=== PATIENT | female | born 1965 | race Caucasian/White ===

== ENCOUNTER 2020-11-25 19:15 | Emergency (ER) | payer MEDICARE, SELFPAY ==
[2020-11-25] VITALS (28 sets, daily range): BP systolic 104–178; BP diastolic 59–94; PULSE 83–101; RESP 10–23; TEMP 36.7; O2SAT 94–100
--- NOTE | ~2020-11-25 | XR_ITS ---
EXAMINATION: XR chest 1V portable DATE: 11/25/2020 20:02 INDICATION: Shortness of breath, hypoxia, cough and COVID positive TECHNIQUE: frontal view of the chest was obtained. COMPARISON: Chest radiograph dated 08/31/2016 FINDINGS: The lungs remain clear with no focal airspace opacities, pulmonary edema, pleural effusion or pneumot horax. The cardiomediastinal silhouette is normal. Visualized bones and soft tissues are unremarkable . IMPRESSION: 1. No acute cardiopulmonary disease. Reviewed, dictated and finalized at location A.
--- NOTE | ~2020-11-25 | CT_ITS ---
EXAMINATION: CTA chest PE protocol DATE: 11/25/2020 21:58 INDICATION: Shortness of breath and cough TECHNIQUE: Computed tomography angiography (CTA) of the chest was performed with 100 mL Omnipaque-350 intravenous contrast timed to evaluate the pulmonary arteries. Coronal maximum intensity projection 3D-reconstructions were created by the technologist. The dose-length product (DLP) was 1030.74 mGy-cm . Automated exposure control and iterative reconstruction technique were employed. COMPARISON: None. FINDINGS: The pulmonary arteries are moderately well-opacified. No pulmonary embolism is identified. There is mild dependent atelectasis. No pleural effusion or pneumothorax is identified. No pathologic ally enlarged thoracic lymph nodes are identified. The heart size is normal. The gallbladder is surgi stoney absent. There is moderate thoracic spondylosis. IMPRESSION: 1. No pulmonary embolism or acute cardiopulmonary abnormality. Reviewed, dictated and finalized at location B.
--- NOTE | 2020-11-25 19:41 | ECG_ITS ---
Measurements Intervals [place] Rate: 89 P: 37 AK: 167 QRS: 4 QRSD: 93 T: 52 QT: 367 QTc: 447 Interpretive Statements SINUS RHYTHM INCOMPLETE RIGHT BUNDLE BRANCH BLOCK BASELINE ARTIFACT- I, II, III, AVR, AVL, AVF, V1-V6 BORDERLINE ECG Electronically Signed On 11-25-2020 20:40:06 CDT by Ion Durbin D.O.
--- NOTE | 2020-11-25 20:18 | ED.GENADULT ---
HPI - General Adult General Chief complaint: Shortness of Breath/Dyspnea Stated complaint: sob, + covid Time Seen by Provider: 11/25/20 19:22 Source: patient History of Present Illness HPI narrative: Patient is a 55 y/o female complaining of moderate SOB for 1 week. She uses Neb which helps some. She also has some cough and chest tightness. She has no fever. She tested positive for COVID 3 days ago. Related Data Home Medications Medication Instructions Recorded Confirmed albuterol sulfate INHALATION 11/25/20 aspirin 81 mg PO DAILY 11/25/20 azithromycin 11/25/20 buspirone 7.5 mg TID 11/25/20 carvedilol 6.25 mg BID 11/25/20 clopidogrel mg DAILY 11/25/20 cyclobenzaprine mg PRN 11/25/20 fluticasone propion-salmeterol INHALATION 11/25/20 fluticasone propion-salmeterol INHALATION 11/25/20 lisinopril 20 mg DAILY 11/25/20 metformin 1,000 mg BID 11/25/20 montelukast 10 mg DAILY 11/25/20 pioglitazone 30 mg DAILY 11/25/20 simvastatin 20 mg DAILY 11/25/20 vitamin B complex [Super B Complex] cap DAILY 11/25/20 Allergies Allergy/AdvReac Type Severity Reaction Status Date / Time No Known Allergies Allergy Verified 11/25/20 19:29 Review of Systems Constitutional: Constitutional: Denies chills, Denies fever(s), Denies headache(s) and Denies weakness Eyes: Eyes: Denies blurry vision ENT: Denies headache(s) and Denies neck pain Cardiovascular: Cardiovascular: Reports chest pain and Reports dyspnea Respiratory: Respiratory: Reports cough and Reports dyspnea Gastrointestinal: Gastrointestinal: Denies abdominal pain, Denies diarrhea, Denies nausea and Denies vomiting Genitourinary: Genitourinary: Denies hematuria and Denies dysuria Musculoskeletal: Musculoskeletal: Denies back pain and Denies neck pain Neurologic: Denies headache(s) and Denies weakness [facility] Past Medical History Medical History (Updated 11/25/20 @ 23:59 by Filomena Cuadra MD) COPD (chronic obstructive pulmonary disease) Family History Family History Mother Patient's mother is in good health Father Carcinoma of colon Family history of diabetes mellitus in first degree relative Family history of heart disease in male family member before age 55 Patient's father is Sibling Family history of diabetes mellitus in first degree relative Family history of heart disease in male family member before age 55 Social History Social History Smoking status: Current every day smoker Alcohol intake: current Exam Const: General: no acute distress and well developed Orientation/consciousness: oriented to person, oriented to place, oriented to time and patient oriented x3 HENMT: Head: normocephalic Ears: external ears normal General nose exam: Normal external nose present Eyes: General: appearance normal, both eyes and all related structures Conjunctivae: conjunctivae normal Neck: Neck: normal visual inspection and full ROM Chest: Chest palpation & inspection: normal inspection of the chest and no tenderness Resp: Effort & Inspection: normal respiratory effort Auscultation: clear to auscultation bilaterally Cardio: Rate: regular rate Rhythm: regular rhythm GI: GI Palp: No abdominal tenderness and Yes Soft to palpation Skin: General skin exam: normal color and turgor normal Neuro: General: oriented to person, oriented to place, oriented to time and patient oriented x3 Cognition (Neuro): normal cognition Extrem: General: normal to inspection, full ROM and no pedal edema Psych: Appearance: grossly normal Mental Status: mental status grossly normal Affect: normal affect Course Vital Signs Vital signs: Vital Signs Temperature 36.7 C 11/25/20 19:25 Pulse Rate 101 H 11/25/20 19:25 Respiratory Rate 20 11/25/20 19:25 Blood Pressure 178/84 H 11/25/20 19:25 Pulse Oximetry 97 11/25/20 19:2
[2020-11-25] MEDS: methylPREDNISolone SOD SUCC 125 MG VIAL IV PUSH (20:44)
[2020-11-25 20:58] LABS: Basophils Percent Auto 0.4 % (0.2-1.2); Eosinophils Absolute Auto 0.2 K/mm3 (0-0.3); Hematocrit 36.5 % (37.0-47.0); Hemoglobin 12.5 g/dL (12.0-15.0); Immature Granulocyte Absolute 0.04 K/mm3 (0.00-0.031); Immature Granulocyte Percent A 0.5 % (0-0.5); Lymphocytes Absolute Auto 1.43 K/mm3 (0.9-3.2); Lymphocytes Percent Auto 18.9 % (18.3-44.2); Mean Corpuscular HGB Conc 34.2 g/dl (32-36); Mean Corpuscular Hemoglobin 31.6 pg (26-34); Mean Corpuscular Volume 92.4 fl (80-100); Mean Platelet Volume 9.4 fl (7.4-10.4); Monocytes Absolute Auto 0.7 K/mm3 (0.1-0.6); Monocytes Percent Auto 9.3 % (2.6-8.5); Neutrophils Absolute Auto 5.2 K/mm3 (1.3-6.7); Neutrophils Percent Auto 68.9 % (45.5-73.1); Platelet Count Result 328 k/mm3 (150-375); Red Blood Count 3.95 M/mm3 (4.2-5.4); Red Cell Distribution Width 13.1 % (11.5-14.5); White Blood Count 7.6 K/mm3 (4.5-10.0)
[2020-11-25 21:09] LABS: Alanine Aminotransferase 24 U/L (4-35); Albumin Level 3.7 g/dL (3.5-5.1); Alkaline Phosphatase 76 U/L (38-126); Anion Gap 6 mmol/L (8-16); Aspartate Amino Transferase 21 U/L (14-36); Bilirubin,Total 0.6 mg/dL (0.2-1.3); Blood Urea Nitrogen 16 mg/dL (7-17); Calcium 9.3 mg/dL (8.4-10.2); Carbon Dioxide 26 mmol/L (22-30); Chloride 104 mmol/L (98-107); Estimated Glomerular Filt Rate > 60; Glucose 113 mg/dL (65-110); Potassium 3.8 mmol/L (3.4-5.0); Sodium 136 mmol/L (137-145)
[2020-11-25 21:10] LABS: D Dimer 1.06 ug/mL (<0.48)
[2020-11-25 21:21] LABS: NT Pro B Type Natriuretic Pept 210 pg/mL (5-100); Troponin I < 0.012 ng/mL (0.000-0.034)
[2020-11-25 23:14] LABS: Troponin I < 0.012 ng/mL (0.000-0.034)
[2020-11-26 00:01] VITALS: BP 179/82; PULSE 98; RESP 13; O2SAT 96
[2020-11-26 00:02] VITALS: PULSE 95; RESP 13; O2SAT 97
[2020-11-26 00:15] VITALS: PULSE 93; RESP 13; O2SAT 97; O2SAT 99
[2020-11-26 00:16] VITALS: BP 175/98; PULSE 92; RESP 14; O2SAT 96
[2020-11-26 00:32] VITALS: PULSE 99; RESP 16
[2020-11-26 00:52] VITALS: BP 175/98; PULSE 92; RESP 14; O2SAT 96
== END 2020-11-26 00:55 | disposition home or self-care (01) ==
PROVIDERS: Emergency Provider Emergency Medicine; PCP Family Medicine
DX: U07.1 COVID-19 (principal); J44.1 Chronic obstructive pulmonary disease with (acute) exacerbation; E11.9 Type 2 diabetes mellitus without complications; Z95.5 Presence of coronary angioplasty implant and graft; Z87.442 Personal history of urinary calculi; Z79.84 Long term (current) use of oral hypoglycemic drugs; Z79.82 Long term (current) use of aspirin; F17.200 Nicotine dependence, unspecified, uncomplicated; I45.10 Unspecified right bundle-branch block
CPT/HCPCS: 36415; 71045; 71275; 80053; 83880; 84484; 85025; 85380; 93005; 96374; 99284; J2930; Q9967

== ENCOUNTER 2021-06-14 15:10 | Emergency (ER) | payer MEDICARE, SELFPAY ==
--- NOTE | ~2021-06-14 | XR_ITS ---
EXAMINATION: XR lumbar spine 2-3V EXAM DATE: 06/14/2021 18:16 INDICATION: Right sided low back pain radiating down right leg, fall. TECHNIQUE: Lumber spine frontal, lateral, bilateral oblique projections. Coned down frontal and lat eral L5-S1 lumbar projections for interpretation. There is no prior study for comparison. FINDINGS: No acute fracture line identified. Vertebral body heights appear maintained. Sacrum, sacroi liac joints, sacral arcuate lines are intact. There is moderate disc disease at L1-2, mild at the o ther lumbar levels. There is grade 1 anterolisthesis L3 on L4 and L4 on L5 without spondylolysis susp ected. Mild to moderate lumbar facet arthropathy. Mild thoracolumbar scoliosis. Sacrum, sacroiliac courtney ints, sacral arcuate lines are intact. Abdominal wall mesh anchors. IMPRESSION: 1. Overall mild to moderate lumbar spondylosis. 2. No acute findings. Reviewed, dictated and finalized at location . T [facility]ENDOR
[2021-06-14 15:15] VITALS: BP 147/82; PULSE 84; RESP 20; TEMP 36.7; O2SAT 100
--- NOTE | 2021-06-14 17:22 | PC.NURSE ---
reports having right hip/lower back pain on thursday. reports fall a week before. denies LOC
[2021-06-14] MEDS: HYDROcodone/acetaminophen (*CRX) 5-325 MG TABLET 1 TAB PO (18:18)
[2021-06-14] MEDS: ACETAMINOPHEN 325 MG TABLET 650 MG PO (18:19)
--- NOTE | 2021-06-14 18:35 | ED.BACK ---
HPI - Back Pain/Injury General Chief Complaint: Back Pain/Injury Stated Complaint: back pain. fall Time Seen by Provider: 06/14/21 17:27 Source: patient Mode of arrival: ambulatory Limitations: no limitations History of Present Illness HPI Narrative: This is a 55 year old female that presents to the ER for low back pain present over the last couple of days. Reports no known injury to the back. Reports she had a ground level fall a couple of weeks ago and injured her knee. Reports the pain is in the right side of her lower back and radiates into the right leg. Denies saddle anesthesia or bowel/bladder incontinence. Related Data Home Medications Medication Instructions Recorded Confirmed albuterol sulfate INHALATION 11/25/20 aspirin 81 mg PO DAILY 11/25/20 buspirone 7.5 mg TID 11/25/20 carvedilol 6.25 mg BID 11/25/20 clopidogrel mg DAILY 11/25/20 cyclobenzaprine mg PRN 11/25/20 fluticasone propion-salmeterol INHALATION 11/25/20 fluticasone propion-salmeterol INHALATION 11/25/20 lisinopril 20 mg DAILY 11/25/20 metformin 1,000 mg BID 11/25/20 montelukast 10 mg DAILY 11/25/20 pioglitazone 30 mg DAILY 11/25/20 simvastatin 20 mg DAILY 11/25/20 vitamin B complex [Super B Complex] cap DAILY 11/25/20 Allergies Allergy/AdvReac Type Severity Reaction Status Date / Time No Known Allergies Allergy Verified 06/14/21 17:24 Review of Systems Review of Systems: CONSTITUTIONAL: Denies fever SKIN: Denies rash MUSCULOSKELETAL: Reports back pain, joint pain, and myalgia. NEUROLOGIC: Denies numbness, or weakness. All systems reviewed & are unremarkable except as noted in HPI and below PMFSH Past Medical History Medical History (Updated 06/14/21 @ 20:01 by Nikki Harvey PA-C) COPD (chronic obstructive pulmonary disease) Family History Family History Mother Patient's mother is in good health Father Carcinoma of colon Family history of diabetes mellitus in first degree relative Family history of heart disease in male family member before age 55 Patient's father is Sibling Family history of diabetes mellitus in first degree relative Family history of heart disease in male family member before age 55 Social History Social History Smoking status: Current every day smoker Alcohol intake: current Exam Narrative: GENERAL: Well-appearing, well-nourished, and in no acute distress. HEAD: Normocephalic, atraumatic. EYES: EOMI. CHEST: Clear to auscultation. No respiratory distress. No wheezes rales or rhonchi HEART: Regular rate and rhythm. No murmur heard. Normal peripheral pulses. BACK: No midline spinal tenderness EXTREMITIES: Normal range of motion. No pitting edema. Strength equal in bilateral lower extremities (5/5). Normal DP pulses SKIN: Warm, dry, no rash. NEURO: No focal deficits. Alert and oriented x3. PSYCH: Normal mood and affect Course Vital Signs Vital signs: Vital Signs Temperature 98.1 F 06/14/21 15:15 Pulse Rate 84 06/14/21 15:15 Respiratory Rate 20 06/14/21 15:15 Blood Pressure 147/82 H 06/14/21 15:15 Pulse Oximetry 100 06/14/21 15:15 Temperature 98.1 F 06/14/21 15:15 Pulse Rate 84 06/14/21 15:15 Respiratory Rate 20 06/14/21 15:15 Blood Pressure 147/82 H 06/14/21 15:15 Pulse Oximetry 100 06/14/21 15:15 MDM - Back Pain/Injury MDM Narrative Medical decision making narrative: Patient presents to the ER for low back pain. No recent injuries or trauma to the back. Patient is neurologically intact. Lumbar spine x-ray shows mild to moderate lumbar spondylosis. No acute findings. Patient reports improvement with [place]. Instructed to rest, ice and take [id number] pain medication as needed. She does have prescribed pain medication as needed as well. Will be started on steroid taper. She is to follow-up with her primary c
== END 2021-06-14 20:27 | disposition home or self-care (01) ==
PROVIDERS: Emergency Provider Emergency Medicine; PCP Family Medicine
DX: M54.41 Lumbago with sciatica, right side (principal); Z79.82 Long term (current) use of aspirin; Z79.84 Long term (current) use of oral hypoglycemic drugs; J44.9 Chronic obstructive pulmonary disease, unspecified; F17.200 Nicotine dependence, unspecified, uncomplicated; M47.816 Spondylosis without myelopathy or radiculopathy, lumbar region
CPT/HCPCS: 72100; 99283; A9270

== ENCOUNTER 2022-06-17 17:08 | Emergency (ER) | payer MEDICARE, SELFPAY ==
[2022-06-17 17:29] VITALS: BP 94/35; PULSE 74; RESP 20; TEMP 36; O2SAT 100
--- NOTE | 2022-06-17 17:31 | ED.URI ---
HPI - URI/Sore Throat General Chief Complaint: Upper Respiratory Infection Stated Complaint: Sore Throat,Lt Ear Irritation Time Seen by Provider: 06/17/22 17:26 Source: patient, RN notes reviewed and old records reviewed Mode of arrival: ambulatory Limitations: no limitations History of Present Illness HPI Narrative: 56-year-old female presents to the [facility] with complaints of a sore throat and left ear pain since yesterday. No treatment prior to arrival. Denies fevers. Onset (ago): day(s) (1) Related Data Home Medications Medication Instructions Recorded Confirmed albuterol sulfate 90 mcg/actuation 90 mcg inhalation DIRECTED 11/25/20 06/17/22 aerosol inhaler aspirin 81 mg tablet 81 mg PO DAILY 11/25/20 06/17/22 buspirone 7.5 mg tablet 7.5 mg TID 11/25/20 06/17/22 carvedilol 6.25 mg tablet 6.25 mg BID 11/25/20 06/17/22 clopidogrel 75 mg tablet 75 mg PO DAILY 11/25/20 06/17/22 cyclobenzaprine 10 mg tablet 10 mg DIRECTED PRN Muscle Spasm 11/25/20 06/17/22 fluticasone 250 mcg-salmeterol 50 1 inh inhalation DIRECTED 11/25/20 06/17/22 mcg/dose blistr powdr for inhalation fluticasone 250 mcg-salmeterol 50 1 inh inhalation DIRECTED 11/25/20 06/17/22 mcg/dose blistr powdr for inhalation lisinopril 20 mg tablet 20 mg DAILY 11/25/20 06/17/22 metformin 500 mg tablet 1,000 mg BID 11/25/20 06/17/22 montelukast 10 mg tablet 10 mg DAILY 11/25/20 06/17/22 pioglitazone 30 mg tablet 30 mg DAILY 11/25/20 06/17/22 simvastatin 20 mg tablet 20 mg DAILY 11/25/20 06/17/22 vitamin B complex 1 cap PO DAILY 11/25/20 06/17/22 methotrexate sodium 2.5 mg tablet 2.5 mg PO DIRECTED 06/17/22 06/17/22 Allergies Allergy/AdvReac Type Severity Reaction Status Date / Time No Known Allergies Allergy Verified 06/14/21 17:24 Review of Systems Review of Systems: All systems reviewed & are unremarkable except as noted in HPI and below Constitutional: Constitutional: Reports no additional constitutional complaints Eyes: Eyes: Reports no additional eye complaints ENT: Reports as per HPI and Reports sore throat Cardiovascular: Cardiovascular: Reports no additional cardiovascular complaints, Denies chest pain and Denies dyspnea Respiratory: Respiratory: Reports no additional respiratory complaints, Denies chest congestion, Denies cough and Denies dyspnea Gastrointestinal: Gastrointestinal: Reports no additional gastrointestinal complaints, Denies abdominal pain, Denies nausea and Denies vomiting Musculoskeletal: Musculoskeletal: Reports no additional musculoskeletal complaints Integumentary/Breasts: Skin/Breast: Reports system reviewed and no additional complaints, except as docu Neurologic: Reports system reviewed and no additional complaints, except as documented Psychiatric: Psychiatric: Reports no additional psychiatric complaints Allergic/Immunologic: Allergic/Immunologic: Reports no additional allergic/immunologic complaints [facility] Past Medical History Medical History COPD (chronic obstructive pulmonary disease) Family History Family History Mother Patient's mother is in good health Father Carcinoma of colon Family history of diabetes mellitus in first degree relative Family history of heart disease in male family member before age 55 Patient's father is Sibling Family history of diabetes mellitus in first degree relative Family history of heart disease in male family member before age 55 Social History Social History Smoking status: Current every day smoker Alcohol intake: current Comments At the time of my signature, I reviewed and agree with the nursing past medical, surgical, social, and family history. There is no relevant family history pertinent to the patient complaint. Exam Const: General: cooperat
== END 2022-06-17 18:07 | disposition home or self-care (01) ==
PROVIDERS: Emergency Provider Nurse Practitioner; PCP Family Medicine
DX: J02.0 Streptococcal pharyngitis (principal); B37.9 Candidiasis, unspecified; Z20.822 Contact with and (suspected) exposure to COVID-19; F17.290 Nicotine dependence, other tobacco product, uncomplicated; J44.9 Chronic obstructive pulmonary disease, unspecified; Z79.82 Long term (current) use of aspirin
CPT/HCPCS: 87426; 87804; 87880; 99213; C9803; G0463

== ENCOUNTER 2022-09-23 17:24 | Emergency (ER) | payer MEDICARE, SELFPAY ==
--- NOTE | ~2022-09-23 | XR_ITS ---
EXAMINATION: XR elbow LT min 3V DATE: 09/23/2022 18:42 INDICATION: Persistent left elbow pain post fall 2 days prior TECHNIQUE: Anteroposterior, two oblique and lateral views of the left elbow were obtained. COMPARISON: None. FINDINGS: Alignment is normal. No fracture or joint effusion. Joint spaces are normal. Small heterotopic ossicl e along the medial epicondyle which could be either enthesopathic or sequela of old trauma. Couple ph leboliths in the subcutaneous tissues along the posterior proximal forearm. IMPRESSION: 1. No left elbow joint effusion or osseous abnormality. 2. Small heterotopic ossicle along the medial epicondyle which could enthesopathic or more likely seq uela of old trauma. Reviewed, dictated and finalized at location A. IMPRESSION: 1. No left elbow joint effusion or osseous abnormality. 2. Small heterotopic ossicle along the medial epicondyle which could enthesopat hic or more likely sequela of old trauma.
--- NOTE | ~2022-09-23 | XR_ITS ---
EXAMINATION: XR knee RT 3V DATE: 09/23/2022 18:42 INDICATION: Right knee pain post fall TECHNIQUE: Anteroposterior, 2 oblique and crosstable lateral views of the right knee were obtained COMPARISON: None. FINDINGS: No fracture. Mild genu varum with moderate to severe joint space narrowing in the medial compartment of the right knee. Moderate size marginal osteophytes all 3 compartments of the knee. Moderate-sized right knee joint effusion without evident layering lipohemarthrosis. There is some subcutaneous edema throughout the visualized distal right thigh and proximal right calf. IMPRESSION: 1. Moderate-sized right knee joint effusion. No acute osseous abnormality. 2. Moderate to severe medial compartment predominant tricompartmental osteoarthritis at the right kne e. Reviewed, dictated and finalized at location A. IMPRESSION: 1. Moderate-sized right knee joint effusion. No acute osseous abnormality. 2. Moderate to severe medial compartment predominant tricompartmental osteoarth ritis at the right knee.
[2022-09-23 17:53] VITALS: BP 136/63; PULSE 86; RESP 20; TEMP 36.1; O2SAT 100
[2022-09-23 17:59] VITALS: BP 136/63; PULSE 86; RESP 20; TEMP 36.1; O2SAT 100
--- NOTE | 2022-09-23 18:20 | ED.GENADULT ---
HPI - General Adult General Chief complaint: Extremity Injury, Lower Stated complaint: Lt Elbow,Rt Knee Injury Due To Fall Time Seen by Provider: 09/23/22 18:00 Source: patient Mode of arrival: ambulatory Limitations: no limitations History of Present Illness HPI narrative: 56-year-old female with a history of COPD, diabetes, MT/PTCI presented for complaint of left elbow and right knee pain after injury 2 days ago. She states she tripped and landed on the left elbow causing an abrasion and bruising. She states at that time she twisted the right knee. Reports the front and back of the right knee hurts. Endorses the pain increases throughout the day. She reports chronic arthritis using Rollator at baseline. She has taken tramadol for chronic pain. She has applied ice without significant change in symptoms. She rates the pain 8/10. Denies numbness, tingling, weakness of extremities. She smokes 1 ppd. Related Data Home Medications Medication Instructions Recorded Confirmed albuterol sulfate 90 mcg/actuation 90 mcg inhalation DIRECTED 11/25/20 09/23/22 aerosol inhaler aspirin 81 mg tablet 81 mg PO DAILY 11/25/20 09/23/22 buspirone 7.5 mg tablet 7.5 mg TID 11/25/20 09/23/22 carvedilol 6.25 mg tablet 6.25 mg BID 11/25/20 09/23/22 clopidogrel 75 mg tablet 75 mg PO DAILY 11/25/20 09/23/22 cyclobenzaprine 10 mg tablet 10 mg DIRECTED PRN Muscle Spasm 11/25/20 09/23/22 fluticasone 250 mcg-salmeterol 50 1 inh inhalation DIRECTED 11/25/20 09/23/22 mcg/dose blistr powdr for inhalation lisinopril 20 mg tablet 20 mg DAILY 11/25/20 09/23/22 metformin 500 mg tablet 1,000 mg BID 11/25/20 09/23/22 montelukast 10 mg tablet 10 mg DAILY 11/25/20 09/23/22 pioglitazone 30 mg tablet 30 mg DAILY 11/25/20 09/23/22 simvastatin 20 mg tablet 20 mg DAILY 11/25/20 09/23/22 vitamin B complex 1 cap PO DAILY 11/25/20 09/23/22 methotrexate sodium 2.5 mg tablet 2.5 mg PO DIRECTED 06/17/22 09/23/22 Allergies Allergy/AdvReac Type Severity Reaction Status Date / Time No Known Allergies Allergy Verified 09/23/22 17:56 Review of Systems Review of Systems: CONSTITUTIONAL: Denies body aches, fever, chills EYES: Denies visual changes ENT: Denies rhinorrhea, congestion CARDIOVASCULAR: Denies chest pain, palpitations, or edema. RESPIRATORY: Denies cough or dyspnea. GASTROINTESTINAL: Denies abdominal pain, nausea, vomiting, or diarrhea. SKIN: Reports wound to left elbow denies rash, itching MUSCULOSKELETAL: Reports joint pain NEUROLOGIC: Denies headache, numbness, tingling, or weakness. All systems reviewed & are unremarkable except as noted in HPI and below PMFSH Past Medical History Medical History (Updated 09/23/22 @ 19:52 by Yuly Miller APRN) CAD (coronary artery disease) COPD (chronic obstructive pulmonary disease) Diabetes Intestinal fistula Tear of meniscus of right knee Surgical History Surgical History (Updated 09/23/22 @ 18:44 by Yuly Miller APRN) History of hysterectomy Family History Family History Mother Patient's mother is in good health Father Carcinoma of colon Family history of diabetes mellitus in first degree relative Family history of heart disease in male family member before age 55 Patient's father is Sibling Family history of diabetes mellitus in first degree relative Family history of heart disease in male family member before age 55 Social History Social History Smoking status: Current every day smoker Alcohol intake: current Comments At time of signature, I have reviewed and agree with nursing past medical, surgical, social and family history unless otherwise noted. Please see nursing chart for further information. There is no relevant family history pertinent to the presenting complaint Exam Narrative: GENERAL: Appears in some pedro
== END 2022-09-23 19:55 | disposition home or self-care (01) ==
PROVIDERS: Emergency Provider Nurse Practitioner Family; PCP Family Medicine
DX: S50.312A Abrasion of left elbow, initial encounter (principal); W01.0XXA Fall on same level from slipping, tripping and stumbling without subsequent striking against object, initial encounter; M25.561 Pain in right knee; M19.90 Unspecified osteoarthritis, unspecified site; I25.10 Atherosclerotic heart disease of native coronary artery without angina pectoris; J44.9 Chronic obstructive pulmonary disease, unspecified; E11.9 Type 2 diabetes mellitus without complications; F17.200 Nicotine dependence, unspecified, uncomplicated; Z79.82 Long term (current) use of aspirin; Z79.84 Long term (current) use of oral hypoglycemic drugs
CPT/HCPCS: 73080; 73562; 99214; G0463

== ENCOUNTER 2022-12-01 08:10 | Emergency (ER) | payer MEDICARE, SELFPAY ==
[2022-12-01] VITALS (7 sets, daily range): BP systolic 100–172; BP diastolic 57–95; PULSE 77–88; RESP 16–22; TEMP 36.6; O2SAT 99–100
--- NOTE | ~2022-12-01 | CT_ITS ---
EXAMINATION: CT abdomen pelvis wo con DATE: 12/01/2022 09:36 INDICATION: Evaluate for kidney stone. TECHNIQUE: Computed tomography (CT) of the abdomen and pelvis was performed without intravenous contr ast. The dose-length product was 1572.18 mGy-cm. Automated exposure control and iterative reconstruct ion technique were employed. COMPARISON: CT dated 11/30/2018. FINDINGS: There is a stable 6 mm right lower lobe nodule, image 46. Heart size normal. There is ather osclerosis. No significant pleural or pericardial effusion. Status post cholecystectomy. Status post previous ventral abdominal wall hernia repair with mesh. The liver, spleen, pancreas, right kidney and adrenal glands are unremarkable. There is mild left per inephric stranding. Mild left hydronephrosis. The left renal pelvis is slightly higher density than n ormal. There are nonobstructing left renal stones, largest measuring 4 mm. Mild left periureteral michael ma. No obstructing ureteral stone is seen. There is atherosclerosis without aneurysm. Colonic diverti culosis without evidence for diverticulitis. Mild lumbar spondylosis. IMPRESSION: 1. Mild left hydronephrosis. No definite obstructing stone identified. There is left perinephric and periureteral edema. Considerations include sequela of recently passed stone. Less likely consideratio ns include pyelonephritis or ascending urinary tract infection. 2: Nonobstructing left nephrolithiasis. 3: Stable 6 mm right lower lobe nodule. Follow-up low dose CT chest in 12 months recommended. Reviewed, dictated and finalized at location A. IMPRESSION: 1. Mild left hydronephrosis. No definite obstructing stone identified. There is left perinephric and periureteral edema. Considerations include sequela of rec ently passed stone. Less likely considerations include pyelonephritis or ascend ing urinary tract infection. 2: Nonobstructing left nephrolithiasis. 3: Stable 6 mm right lower lobe nodule. Follow-up low dose CT chest in 12 enrique hs recommended.
[2022-12-01 08:41] LABS: Basophils Percent Auto 0.5 % (0.2-1.2); Eosinophils Absolute Auto 0.1 K/mm3 (0-0.3); Eosinophils Percent Auto 1.3 % (0-4.4); Hematocrit 39.7 % (37.0-47.0); Hemoglobin 13.3 g/dL (12.0-15.0); Immature Granulocyte Absolute 0.02 K/mm3 (0.00-0.031); Immature Granulocyte Percent A 0.3 % (0-0.5); Lymphocytes Absolute Auto 1.23 K/mm3 (0.9-3.2); Mean Corpuscular HGB Conc 33.5 g/dl (32-36); Mean Corpuscular Hemoglobin 33.5 pg (26-34); Mean Platelet Volume 8.8 fl (7.4-10.4); Monocytes Absolute Auto 0.6 K/mm3 (0.1-0.6); Monocytes Percent Auto 7.9 % (2.6-8.5); Neutrophils Absolute Auto 5.7 K/mm3 (1.3-6.7); Platelet Count Result 275 k/mm3 (150-375); Red Blood Count 3.97 M/mm3 (4.2-5.4); Red Cell Distribution Width 13.9 % (11.5-14.5); White Blood Count 7.7 K/mm3 (4.5-10.0)
[2022-12-01 08:52] LABS: Alanine Aminotransferase 22 U/L (6-35); Albumin Level 3.8 g/dL (3.5-5.1); Alkaline Phosphatase 62 U/L (38-126); Anion Gap 13 mmol/L (8-16); Aspartate Amino Transferase 24 U/L (14-36); Bilirubin,Total 0.5 mg/dL (0.2-1.3); Blood Urea Nitrogen 14 mg/dL (7-17); Calcium 8.7 mg/dL (8.4-10.2); Carbon Dioxide 23 mmol/L (22-30); Chloride 100 mmol/L (98-107); Estimated CRCL calculation 151 ml/min; Estimated Glomerular Filt Rate > 60; Glucose 168 mg/dL (65-110); Potassium 3.7 mmol/L (3.4-5.0); Sodium 136 mmol/L (137-145)
--- NOTE | 2022-12-01 08:59 | ED.BACK ---
HPI - Back Pain/Injury General Chief Complaint: Back Pain/Injury Stated Complaint: left side pain/hematuria Time Seen by Provider: 12/01/22 08:54 History of Present Illness HPI Narrative: 57 y/o female presents to the ER today for pain in the LLQ and hematuria. She says she woke up this morning and had bloody urine. She has been having pain in the left lower abdomen since then. She says it hurts in her left flank only when she is up and moving around. She has a history of kidney stones but says that this hurts worse than a kidney stone she has has had in the past. She feels like she needs to have a BM but can't. She has nausea but no vomiting. No fever or chills. Related Data Home Medications Medication Instructions Recorded Confirmed albuterol sulfate 90 mcg/actuation 90 mcg inhalation DIRECTED 11/25/20 09/23/22 aerosol inhaler aspirin 81 mg tablet 81 mg PO DAILY 11/25/20 09/23/22 buspirone 7.5 mg tablet 7.5 mg TID 11/25/20 09/23/22 carvedilol 6.25 mg tablet 6.25 mg BID 11/25/20 09/23/22 clopidogrel 75 mg tablet 75 mg PO DAILY 11/25/20 09/23/22 cyclobenzaprine 10 mg tablet 10 mg DIRECTED PRN Muscle Spasm 11/25/20 09/23/22 fluticasone 250 mcg-salmeterol 50 1 inh inhalation DIRECTED 11/25/20 09/23/22 mcg/dose blistr powdr for inhalation lisinopril 20 mg tablet 20 mg DAILY 11/25/20 09/23/22 metformin 500 mg tablet 1,000 mg BID 11/25/20 09/23/22 montelukast 10 mg tablet 10 mg DAILY 11/25/20 09/23/22 pioglitazone 30 mg tablet 30 mg DAILY 11/25/20 09/23/22 simvastatin 20 mg tablet 20 mg DAILY 11/25/20 09/23/22 vitamin B complex 1 cap PO DAILY 11/25/20 09/23/22 methotrexate sodium 2.5 mg tablet 2.5 mg PO DIRECTED 06/17/22 09/23/22 Allergies Allergy/AdvReac Type Severity Reaction Status Date / Time No Known Allergies Allergy Verified 12/01/22 08:26 Review of Systems Review of Systems: CONSTITUTIONAL: Denies fever, chills, or sweats. EYES: Denies visual changes, redness, or discharge. ENT: Denies rhinorrhea, congestion, sore throat, or otalgia. CARDIOVASCULAR: Denies chest pain, palpitations, or edema. RESPIRATORY: Denies cough or dyspnea. GASTROINTESTINAL: as per HPI GENITOURINARY: hematuria, left flank pain SKIN: Denies rash or itching. MUSCULOSKELETAL: Denies joint pain, or myalgia. NEUROLOGIC: Denies headache, numbness, dizziness, or weakness. PSYCHIATRIC: Denies anxiety or depression. [facility] Past Medical History Medical History CAD (coronary artery disease) COPD (chronic obstructive pulmonary disease) Diabetes Intestinal fistula Tear of meniscus of right knee Surgical History Surgical History History of hysterectomy Family History Family History Mother Patient's mother is in good health Father Carcinoma of colon Family history of diabetes mellitus in first degree relative Family history of heart disease in male family member before age 55 Patient's father is Sibling Family history of diabetes mellitus in first degree relative Family history of heart disease in male family member before age 55 Social History Social History Smoking status: Current every day smoker Alcohol intake: current Exam Narrative: GENERAL: Obese, acute pain distress but not ill or toxic appearing HEAD: Normocephalic, atraumatic. EYES: conjunctiva clear NECK: Supple. No adenopathy or masses. No carotid bruits or JVD CHEST: Clear to auscultation. No respiratory distress. No wheezes rales or rhonchi HEART: Regular rate and rhythm. No murmur heard. Normal peripheral pulses. ABDOMEN: morbidly obese abdomen, very large pannus, tender LLQ, no CVAT EXTREMITIES: Normal range of motion. No edema. SKIN: Warm, dry, no rash. NEURO: No focal deficits. Alert
[2022-12-01] MEDS: SODIUM CHLORIDE 0.9% IV 1,000 ML 999 ML IV CONT (09:04)
[2022-12-01] MEDS: ONDANSETRON INJ 4 MG/2 ML VIAL IV PUSH (09:05)
[2022-12-01] MEDS: MORPHINE SULFATE (*CRX) 4 MG/ML INJ IV PUSH (09:05)
[2022-12-01] MEDS: MORPHINE SULFATE (*CRX) 2 MG/ML INJ IV PUSH (10:06)
[2022-12-01] MEDS: cefTRIAXone 2 GM/NS 100 ML 2 GM/100 ML BAG IVPB (10:24)
[2022-12-01 10:50] LABS: Appearance Urine Cloudy (Clear); Bacteria Urine None Seen /hpf; Bilirubin Urine Negative (Negative); Blood Urine 3+ (Negative); Color Urine Dark Yellow (Yellow); Glucose Urine UA Negative (Negative); Ketones Urine Trace mg/dL (Negative); Leukocyte Esterase Ur 3+ LEU/UL (Negative); Need Manual Microscopic Reviewed; Nitrate Urine Negative (Negative); Protein Urine 2+ mg/dL (Negative); RBC Urine >100 /hpf (0-2); Specific Grav Ur 1.023 (1.001-1.035); Squamous Epithelial Cell Urine Few /hpf (Few); WBC Urine >100 /hpf
[2022-12-01 10:58] LABS: Add Urine Microscopic? YES
== END 2022-12-01 11:42 | disposition home or self-care (01) ==
PROVIDERS: Emergency Medicine; Emergency Provider Nurse Practitioner Family; PCP Family Medicine
DX: N10 Acute pyelonephritis (principal); B96.89 Other specified bacterial agents as the cause of diseases classified elsewhere; I25.10 Atherosclerotic heart disease of native coronary artery without angina pectoris; J44.9 Chronic obstructive pulmonary disease, unspecified; E11.9 Type 2 diabetes mellitus without complications; Z90.710 Acquired absence of both cervix and uterus; Z79.84 Long term (current) use of oral hypoglycemic drugs; Z79.82 Long term (current) use of aspirin; R91.1 Solitary pulmonary nodule; N20.0 Calculus of kidney
CPT/HCPCS: 36415; 74176; 80053; 81001; 85025; 87077; 87086; 87186; 96361; 96365; 96375; 96376; 99284; J0696; J2270; J2405; J7030

== ENCOUNTER 2023-07-29 13:48 | Emergency (ER) | payer MEDICARE, SELFPAY ==
--- NOTE | ~2023-07-29 | XR_ITS ---
EXAMINATION: XR knee RT 3V DATE: 07/29/2023 16:28 INDICATION: Twisting right knee pain TECHNIQUE: AP, lateral and oblique views of the right knee were obtained COMPARISON: 09/23/2022 FINDINGS: Bone alignment is normal. No fracture. Tricompartmental osteoarthritis at the right knee mi ld joint space narrowing at the lateral and patellofemoral compartments and moderate to severe at the medial compartment. Small right knee joint effusion without layering lipohemarthrosis. Surgical clip s along the medial right thigh likely related to prior saphenous vein graft harvest. Again seen is di ffuse fatty atrophy throughout the musculature of the visualized right leg. IMPRESSION: 1. Small right knee joint effusion. No acute osseous abnormality. 2. Moderate to severe medial compartment predominant tricompartmental osteoarthritis at the right kne e. Reviewed, dictated and finalized at location A. IMPRESSION: 1. Small right knee joint effusion. No acute osseous abnormality. 2. Moderate to severe medial compartment predominant tricompartmental osteoarth ritis at the right knee.
[2023-07-29 13:50] VITALS: BP 144/61; PULSE 61; RESP 16; TEMP 36.6; O2SAT 100
--- NOTE | 2023-07-29 17:22 | ED.GENADULT ---
HPI - General Adult General Chief complaint: Extremity Injury, Lower Stated complaint: fall last noc, R knee pain Time Seen by Provider: 07/29/23 15:22 History of Present Illness HPI narrative: 57-year-old female presenting to the emergency department for evaluation of right knee pain. Patient reports she had a fall yesterday landing on her knee and did not have immediate pain after the fall. Patient states when she woke up this morning she did have some knee pain in that the knee pain has progressed over the course of the day. Patient denies striking head denies loss consciousness. Patient does have a wound dressing intact the affected leg the medial thigh. Related Data Home Medications Medication Instructions Recorded Confirmed albuterol sulfate 90 mcg/actuation 90 mcg inhalation DIRECTED 11/25/20 09/23/22 aerosol inhaler aspirin 81 mg tablet 81 mg PO DAILY 11/25/20 09/23/22 buspirone 7.5 mg tablet 7.5 mg TID 11/25/20 09/23/22 carvedilol 6.25 mg tablet 6.25 mg BID 11/25/20 09/23/22 clopidogrel 75 mg tablet 75 mg PO DAILY 11/25/20 09/23/22 cyclobenzaprine 10 mg tablet 10 mg DIRECTED PRN Muscle Spasm 11/25/20 09/23/22 fluticasone 250 mcg-salmeterol 50 1 inh inhalation DIRECTED 11/25/20 09/23/22 mcg/dose blistr powdr for inhalation lisinopril 20 mg tablet 20 mg DAILY 11/25/20 09/23/22 metformin 500 mg tablet 1,000 mg BID 11/25/20 09/23/22 montelukast 10 mg tablet 10 mg DAILY 11/25/20 09/23/22 pioglitazone 30 mg tablet 30 mg DAILY 11/25/20 09/23/22 simvastatin 20 mg tablet 20 mg DAILY 11/25/20 09/23/22 vitamin B complex 1 cap PO DAILY 11/25/20 09/23/22 methotrexate sodium 2.5 mg tablet 2.5 mg PO DIRECTED 06/17/22 09/23/22 Allergies Allergy/AdvReac Type Severity Reaction Status Date / Time No Known Allergies Allergy Verified 07/29/23 13:52 Review of Systems Review of Systems: All systems reviewed & are unremarkable except as noted in HPI and below PMFSH Past Medical History Medical History CAD (coronary artery disease) COPD (chronic obstructive pulmonary disease) Diabetes Intestinal fistula Tear of meniscus of right knee Surgical History Surgical History History of hysterectomy Family History Family History Mother Patient's mother is in good health Father Carcinoma of colon Family history of diabetes mellitus in first degree relative Family history of heart disease in male family member before age 55 Patient's father is Sibling Family history of diabetes mellitus in first degree relative Family history of heart disease in male family member before age 55 Social History Social History Smoking status: Current every day smoker Alcohol intake: current Exam Narrative: APPEARANCE: Well appearing, no pain, no distress, well-nourished. HEAD: normocephalic, atraumatic. EYES: PERRLA/EOMI, conjunctivae clear. NOSE: Normal no drainage EARS:TMS clear with good light reflex. THROAT: Pharynx clear, no exudate. NECK: Supple. No adenopathy, no masses. RESPIRATORY: Airway patent, respirations nonlabored. Clear to auscultation bilaterally, no rales, rhonchi, wheezing. CARDIOVASCULAR: Regular rate and rhythm without murmurs rubs or gallops. ABDOMINAL: Soft, nontender, nondistended, normal bowel sounds MUSCULOSKELETAL: Tenderness to right knee NEURO: Alert. Cranial nerves II through XII intact. Grossly intact SKIN: Warm, dry. Normal Color Course Course Emergency Course: Patient was updated results and encouraged to have close follow-up with Orthopedics. Vital Signs Vital signs: Vital Signs Temperature 97.9 F 07/29/23 13:50 Pulse Rate 61 07/29/23 13:50 Respiratory Rate 16 07/29/23 13:50 Blood Pressure 144/61 H 03
[2023-07-29 17:35] VITALS: BP 135/69; PULSE 81; RESP 20; O2SAT 97
--- NOTE | 2023-07-29 17:53 | PC.NURSE ---
Pt does not fit knee immobilizer. ERP, Dr alvarado aware.
== END 2023-07-29 17:55 | disposition home or self-care (01) ==
PROVIDERS: Emergency Provider Emergency Medicine; PCP Family Medicine
DX: M23.91 Unspecified internal derangement of right knee (principal); W19.XXXA Unspecified fall, initial encounter; I25.10 Atherosclerotic heart disease of native coronary artery without angina pectoris; E11.9 Type 2 diabetes mellitus without complications
CPT/HCPCS: 73562; 99283

== ENCOUNTER 2024-03-28 20:39 | Emergency (ER) | payer MEDICARE, SELFPAY ==
[2024-03-28 20:41] VITALS: BP 150/76; PULSE 91; RESP 16; TEMP 36.3; O2SAT 100
--- NOTE | 2024-03-28 23:48 | PC.NURSE ---
pt to appeals rn, i think i am just going to go home.
== END 2024-03-28 23:48 | disposition left against medical advice (07) ==
LOC: ANHED 23:51
PROVIDERS: PCP Family Medicine
DX: R10.9 Unspecified abdominal pain (principal)
CPT/HCPCS: 99199

== ENCOUNTER 2024-10-04 17:24 | Observation (INO) | payer MEDICARE, SELFPAY ==
--- NOTE | ~2024-10-04 | XR_ITS ---
XR femur RT min 2V Ordering provider: Trever Choudhury MD History: . wound TO MEDIAL UPPER THIGH . Comparison: July 29, 2023 FINDINGS: BONES: No acute fracture or dislocation. JOINT SPACES: Osteopenia in the bones around the right knee joint. Severe narrowing of the medial com partment. Moderate narrowing of the lateral compartment. SOFT TISSUES: Normal. IMPRESSION: No acute osseous abnormality of the right femur. Osteopenia around the right knee joint. Severe osteoarthritic changes of the right knee. Reviewed, dictated and finalized at location [facility]. IMPRESSION: No acute osseous abnormality of the right femur. Osteopenia around the right kn ee joint. Severe osteoarthritic changes of the right knee.
--- NOTE | ~2024-10-04 | CT_ITS ---
CT scan of the right lower extremity CLINICAL HISTORY: cellulitis, diabetic TECHNIQUE: Following intravenous administration of 200 cc of Omnipaque 350 contrast material, axial i maging of the right lower extremity, from the right pelvis through the right foot was performed. Sagi ttal and coronal reformatted images were constructed. Dose reduction technique was used on this scan by utilizing automated exposure control and iterative reconstruction technique. The dose-length produ ct (DLP) was 2106.11 mGy-cm. Findings: Visualized osseous structures are intact. No fracture or destructive change to suggest oste oarthritis. There is moderate tricompartmental degenerative change at the right knee. Right hip joint is intact. Joint spaces at the foot and ankle appear intact. No joint effusion evident. There is musculature in the right lower extremity venous without significant abnormality. There is di ffuse subcutaneous soft tissue edema, especially at the medial aspect of the lower extremity about th e knee joint. There is extensive skin thickening, especially through the calf and about the knee. No definite focal fluid collection seen to suggest abscess. There is apparent postoperative change and d istortion at the anterior aspect of the proximal right thigh. IMPRESSION: Extensive subcutaneous soft tissue edema of the right lower extremity, especially about the knee, com patible with cellulitis. No abscess evident. No evidence for osteomyelitis. Probable postoperative scarring and distortion at the anterior aspect of the proximal right thigh. Co rrelate with surgical history and physical exam. Moderate degenerative change at the knee. Reviewed, dictated and finalized at [facility]. IMPRESSION: Extensive subcutaneous soft tissue edema of the right lower extremity, especial ly about the knee, compatible with cellulitis. No abscess evident. No evidence for osteomyelitis. Probable postoperative scarring and distortion at the anterior aspect of the pr oximal right thigh. Correlate with surgical history and physical exam. Moderate degenerative change at the knee.
[2024-10-04 17:26] VITALS: BP 118/49; PULSE 101; RESP 16; TEMP 36.8; O2SAT 100
--- OUTSIDE RECORDS SUMMARY | 2024-10-04 17:26 | XMS_ITS | Clinical Summary ---
Author Organization [facility] [address] Address [address] [place] [address] Care Team Providers Care Delphi Developer Name Role Phone Apolinar Gonzáles MD Primary Care Provider [phone] Eric Lynn MD Unavailable [phone] Allergies No known active allergies Medications aspirin (ASPIRIN LOW DOSE) 81 mg tabletIndications:p revention of thrombosis take 1 Tablet (81MG) by oral route every day 0 05/18/19 13 Active metFORMIN (GLUCOPHAGE) 500 mg tabletIndications:t ype 2 diabetes mellitus [The details of the medication are not available because there are pending changes by a home health clinician.] 0 0 11/30/19 13 Active Additional Information Patient not taking.Reason: dose change 08/17/2023, Informant: Self, Reported on 11/18/2023 montelukast (SINGULAIR) 10 mg tabletIndications:M aintenance Therapy for Asthma take 1 tablet by oral route every day in the evening 0 0 08/14/19 16 Active lisinopril (PRINIVIL,ZESTRIL) 20 mg tabletIndications:h ypertension take 1 tablet by oral route every day 0 0 08/14/19 16 Active fluticasone-salmete rol (ADVAIR DISKUS) 250-50 mcg/dose diskus inhalerIndications: Bronchospasm Prevention with COPD,Maintenance Therapy for Asthma Inhale 1 puff 2 (two) times a day Rinse mouth with water after use to reduce aftertaste and incidence of candidiasis. Do not swallow. Active albuterol HFA (PROVENTIL HFA,VENTOLIN HFA) 90 mcg/actuation inhalerIndications: Acute Asthma Attack,Chronic Obstructive Pulmonary Disease Inhale 2 puffs every 6 (six) hours as needed for wheezing Active fluticasone (FLONASE) 50 mcg/actuation nasal sprayIndications:Al lergic Rhinitis Administer 1 spray into each nostril 2 (two) times a day 07/18/19 18 Active cholecalciferol (VITAMIN D-3) 400 unit capsuleIndications: Supplement Take 1 tablet/capsule (400 Units total) by mouth early childhood specialist before breakfast Active nitroglycerin (NITROSTAT) 0.4 mg SL tabletIndications:a cute episode of anginal pain Place 1 tablet (0.4 mg total) under the tongue every 5 (five) minutes as needed for chest pain May repeat dose q 5 min, up to 3 doses total 30 tablet 3 10/24/19 23 Active cyclobenzaprine (FLEXERIL) 10 mg tabletIndications:M uscle Spasm Take 1 tablet by mouth 3 (three) times a day for muscle spasms takes BID third dose is if needed 04/07/[address] (CYMBALTA) 30 mg capsuleIndications: Diabetic Peripheral Neuropathy,Fibromya lgia Take 2 capsules (60 mg total) by mouth early childhood specialist before breakfast Active ipratropium-albuter oL (DUO-NEB) 0.5-2.5 mg/3 mL nebulizer solutionIndications :Chronic Obstructive Pulmonary Disease with Bronchospasms Take 3 mL by nebulization every 6 (six) hours as needed for wheezing or shortness of breath 05/05/20 23 Active meclizine (ANTIVERT) 25 mg tabletIndications:V ertigo Take 1 tablet by mouth 3 (three) times a day as needed for dizziness takes BID third dose is as needed 03/31/20 23 Active methotrexate 2.5 mg tabletIndications:R heumatoid Arthritis Take 9 tablets (22.5 mg total) by mouth every 7 days Thursday Active pioglitazone (ACTOS) 30 mg tabletIndications:t ype 2 diabetes mellitus Take 1 tablet (30 mg total) by mouth early childhood specialist before breakfast 05/21/19 24 Active acetaminophen 500 mg capsuleIndications: Pain [The details of the medication are not available because there are pending changes by a home health clinician.] 09/04/19 24 Active Additional Information Patient not taking.Reason: Other (not needed routinely), Informant: Self, Reported on 10/14/2023 blood-glucose meter kitIndications:DM Use as directed. 1 kit 10/07/19 Active blood glucose diagnostic (glucose blood) stripIndications:DM Use as directed up to four times a day. 100 each 1 10/07/19 24 Active lancets miscIndications:DM Use as directed up to 4 times a day. 100 each 1 10/07/19 24 Active alcohol swabs (Alcohol Wipes) pads, medicatedIndication s:DM Use as directed. 100 each 10/07/19 24 Active oxyCODONE (ROXICODONE) 5 mg immediate release tabletIndications:P ain [The details of the medication are not available because there are pending changes by a home health clinician.] 30 tablet 10/08/19 24 Active Additional Information Patient not taking.Reason: No longer needs for pain, Informant: Self, Reported on 11/18/2023 doxycycline (MONODOX) 100 mg capsuleIndications: Skin/Soft Tissue Infection [The details of the medication are not available because there are pending changes by a home health clinician.] 24 capsule 10/08/19 24 Active Additional Information Patient not taking.Reason: was only for 12 days, Reported on 11/18/2023 fluconazole (DIFLUCAN) 200 mg tabletIndications:S kin/Soft Tissue Infection [The details of the medication are not available because there are pending changes by a home health clinician.] 22 tablet 10/09/19 24 Active Additional Information Patient not taking.Reason: was only for 10 days, Reported on 11/18/2023 metFORMIN (GLUCOPHAGE) 500 mg tabletIndications:t ype 2 diabetes mellitus Take 2 tablets (1,000 mg total) by mouth 2 (two) times a day with meals 08/17/19 24 Active traMADoL (ULTRAM) 50 mg tabletIndications:P ain Take 1 tablet (50 mg total) by mouth every 6 (six) hours as needed for pain 20 tablet 10/21/19 24 Active carvediloL (COREG) 6.25 mg tabletIndications:h ypertension TAKE 1 TABLET BY MOUTH TWICE DAILY WITH MEALS 180 tablet 3 11/13/19 24 Active clopidogreL (PLAVIX) 75 mg tabletIndications:P eripheral Arterial Thromboembolism Prevention Take 1 tablet by mouth once daily 90 tablet 3 11/23/19 24 Active simvastatin (ZOCOR) 20 mg tabletIndications:h yperlipidemia Take 1 tablet by mouth nightly 90 tablet 3 11/23/19 24 Active folic acid (FOLVITE) 1 mg tabletIndications:s upplement Take 1 tablet by mouth daily 11/09/19 24 Active Active Problems Problem Noted Date Diagnosed Date Dehiscence of incision, sequela 09/25/2023 Assessment & Plan (10/06/2023 12:15 PM CDT): Sanjay David is a 57 y.o. female with obesity, hypertension, hyperlipidemia, coronary artery disease and diabetes who underwent resection of a large right inner thigh lipoma on 07/02/23. Developed redness around the drain sites and was given 7 days of Bactrim. Some warmth and redness tenderness persisted across the top of her thigh and the incision began to drain She was treated with Keflex with some improvement but continued to have drainage and redness and a palpable fluid collection. Admitted 09/01/23 for I&D which found significant seroma w/o evidence of purulence, however culture grew MSSA/pseudomonas and she was treated for SSTI with cephalexin and ciprofloxacin 10 days. Per patient after discharge, she popped some of the stitches and draining resumed, and recently drainage increased along with redness and tenderness along the inferior wound margin. CT Right thigh 09/28 showed a 5.8 x 3.9 x 6.2cm rim-enhancing fluid collection Taken to OR 10/01 for I&D - intraoperatively noted serous/cloudy fluid in the abscess, area surrounded by woody rind OR cultures 10/01: Pseudomonas; Sonali Albicans, 1 culture w/ CONS likely contaminant (one colony on one piece of media) Recommendations: - Discontinue IV cefepime and start Ciprofloxacin 750mg PO BID, Doxycyline 100mg PO BID, and Fluconazole 400mg PO daily (ordered) - Check EKG for baseline Qtc - ID is formally signing off but will continue to monitor patient peripherally while in house. Recommending to continue treatment for SSTI abscess s/p surgical debridement for 14 days with PO ciprofloxacin, doxycycline, and fluconazole 10/06/23-10/20/23). Please see sign off note from 10/05 for complete recommendations. Cellulitis and abscess of lower extremity 2023 Assessment & Plan (09/04/2023 3:18 PM CDT): Sanjay David is a 57 y.o. female with obesity, hypertension, hyperlipidemia, coronary artery disease and diabetes who underwent resection of a large right thigh lipoma on July 02. When she was seen on July 23 her drains were taken out her stitches were removed. She reported some redness around the drain sites and was given 7 days of Bactrim. She developed some warmth and redness tenderness persisted across the top of her thigh and the incision began to drain as well. She was treated with Keflex with some improvement but continued to have drainage and redness and a palpable fluid collection. She was admitted on August 31 for I and D. In the OR where they cleaned out a significant seroma cavity without any evidence of purulence. Some debridement of the local skin around the area was also debrided. Tissue cultures were sent which are positive for MSSA and Pseudomonas. Susceptibilities returned today 09/02 Qtc: 432 Recommendations: - when ready for discharge would discharge on ciprofloxacin 500 mg p.o. b.i.d. and Keflex 500 mg p.o. t.i.d. for 10-14 days. Patient does not require ID follow-up. - discussed plan with patient and reviewed possible side effects and triggers for calling her physician. - plan discussed with ortho TALENT AGENT - we will sign off. call with questions Open wound of right thigh 08/27/2023 Requires daily management of epidural infusion 0 07/06/2023 Mass of right thigh 06/05/2023 Morbid (severe) obesity due to excess calories 0 10/23/2022 Body mass index (BMI) 60.0-69.9, adult Angina pectoris, unspecified 10/23/2022 Bilateral leg weakness 09/02/2022 Neck pain on right side 02/03/2018 Arthritis 07/30/2017 Bladder leak 07/30/2017 COPD (chronic obstructive pulmonary disease) Diabetes mellitus 07/30/2017 Dyslipidemia 07/30/2017 HTN (hypertension) 07/30/2017 Seasonal allergies 07/30/2017 Coronary artery disease invo lving [place] coronary artery of [place] heart without angina pectoris 02/26/2017 History of coronary artery stent placement 02/26 Morbid obesity with body mas s index (BMI) of 60.0 to 69.9 in adult 02/26/2017 Encounters Date Type Department Care Team Description 07/14/2024 11:00 AM BUSINESS REPRESENTATIVE Office Visit [facility] Orthopaedic Surgery [address] [place] [address] [place] [address] Eric Lynn MD Open wound of right thigh, initial encounter (Primary Dx) from Last 3 Months Surgical History Surgery Date Site/Laterality Comments CHOLECYSTECTOMY OTHER SURGICAL HISTORY Repeated removal of retained bile duct stones HYSTERECTOMY HERNIA REPAIR CORONARY ANGIOPLASTY 05/11/2009 - 05/10/2010 ANN-MARIE to LAD MASS EXCISION 06/11/2023 - 07/09/2023 Right SECTION x3 COLONOSCOPY Medical History Medical History Date Comments Hypertension Diabetes mellitus (HCC) Obesity Arthritis COPD (chronic obstructive pulmonary disease) (HC C) Hypercholesteremia Sleep apnea Family History Medical History Relation Name Comments Heart attack Father Heart attack Mother Anesthesia problems Neg Hx Malig Hyperthermia Neg Hx Pseudochol deficiency Neg Hx Relation Name Status Comments Father Mother Social History Tobacco Use Types Packs/Day Years Used Date Smoking Tobacco: Former Cigarettes 1 40 0 05/20/1983 - 05/20/2023 Smokeless Tobacco: Never Tobacco Cessation:Counseling Given: Not Answered Comments:Smoking History Packs/day: 1 Packs Alcohol Use Standard Drinks/Week Comments Yes 1 (1 standard drink = 0.6 oz pur e alcohol) occassionally OASIS D0700: Social Isolation Answer Da te Recorded Frequency of experiencing loneliness or isolatio n Never 01/20/2024 OASIS A1250: Transportation Answer Date Recorded Lack of Transportation (Medical) No 01/20/2024 Lack of Transportation (Non-Medical) No 01/20/2024 Patient Unable or Declines to Respond No 01/20/2024 OASIS B1300: Health Literacy Answer Martell e Recorded Frequency of needing help to read materials from doctor or pharmacy Never 01/20/2024 [facility] Utilities Answer Date Recorded In the past 12 months has th e electric, gas, oil, or water company threatened to shut off services in your home? No 10/09/2023 Social Connection and Isolat ion Panel [NHANES] Answer Date Recorded In a typical week, how many times do you talk on the phone with family, friends, or neighbors? More than three times a week 10/09/2023 How often do you get togethe r with friends or relatives? More than three times a week 10/09/2023 How often do you attend chur ch or confucianist services? Never 10/09/2023 Do you belong to any clubs o r organizations such as religion groups, unions, fraternal or athletic groups, or school groups? No 10/09/2023 How often do you attend meet ings of the clubs or organizations you belong to? Never 10/09/2023 Are you , , di vorced, , never , or living with a partner? 10/09/2023 AUDIT-C Answer Date Recorded Q1: How often do you have a drink containing alcohol? Never 10/02/2023 Q2: How many drinks containi ng alcohol do you have on a typical day when you are drinking? Patient does not drink Q3: How often do you have si x or more drinks on one occasion? Never 10/02/2023 Overall Financial Resource Strain (CARDIA) Answe r Date Recorded How hard is it for you to pa y for the very basics like food, housing, medical care, and heating? Not very hard 10/09/2023 Hunger Vital Sign Answer Date Recorded Within the past 12 months, y ou worried that your food would run out before you got the money to buy more. Never true 10/09/19 24 Within the past 12 months, t he food you bought just didn't last and you didn't have money to get more. Never true 10/09/2023 PRAPARE - Transportation Answer Date Re corded In the past 12 months, has l ack of transportation kept you from medical appointments or from getting medications? No 09/10 In the past 12 months, has l ack of transportation kept you from meetings, work, or from getting things needed for daily living? No 10/09/2023 Housing Stability Vital Sign Answer Martell e Recorded In the last 12 months, was t here a time when you were not able to pay the mortgage or rent on time? No 09/26/2023 In the last 12 months, how many places have you lived? 1 09/26/2023 In the last 12 months, was t here a time when you did not have a steady place to sleep or slept in a [facility] (including now)? No 09/26/2023 Housing Stability Vital Sign Answer Martell e Recorded In the last 12 months, was t here a time when you were not able to pay the mortgage or rent on time? No 10/09/2023 In the past 12 months, how m any times have you moved where you were living? 1 10/09/2023 At any time in the past 12 m [facility], were you homeless or living in a m[facility]p (including now)? No 10/09/2023 Personal Safety Answer Date Recorded Have you ever been in or are you currently in a harmful physical or emotional relationship or is someone making you feel afraid or unsafe? Denies 10/02/2023 Comments Unknown Sex and Gender Information Value Date Recorded Sex Assigned at Not on file Legal Sex Female 12:23 AM BUSINESS REPRESENTATIVE Gender Identity Not on file Sexual Orientation Not on file Obstetrics History Last Filed Vital Signs Vital Sign Reading Time Taken Comments Blood Pressure 120/84 01/20/2024 11:45 AM CDT Pulse 68 01/20/2024 11:45 AM CDT Temperature 36.4 C (97.5 F) 01/20/2024 11:45 AM CDT Respiratory Rate 18 01/20/2024 11:4 5 AM CDT Oxygen Saturation 96% 01/20/2024 11: 45 AM CDT Inhaled Oxygen Concentration - - Weight 147.6 kg (325 lb 6.4 oz) 10/27/2023 1:56 PM CDT Height 157.5 cm (5' 2) 10/27/2023 1:56 PM CDT Body Mass Index 59.52 10/27/2023 1:56 PM CDT Plan of Treatment Health Maintenance Due Date Last Done Comments Albumin Creatinine Ratio, Urine 1964 Colon Cancer Screening-Colonoscopy 1964 Depression Screening 1964 Hepatitis C Screening 1964 Dilated Eye Exam 1964 Foot Exam 1964 Hepatitis B Screening 1982 Regular Well Visit/Exam 18-64 1982 Zoster Vaccine (1 of 2) 10/20/1983 Lung Cancer Screening 2014 Pneumococcal vaccine <65 (2 of 2 - PCV) 01/31/2018 01/31/2017 Breast Cancer Screening-Mammogram 11/22/2023 023, 11/21/2022 Hemoglobin A1C 12/09/2023 06/10/2023 Lipid Panel 07/03/2024 07/03/2023, 10/09, 10/22/2021, Additional history exists eGFR 10/07/2024 10/08/2023, 09/09, 10/06/2023, Additional history exists Influenza Vaccine (Season Ended) 2025 03/19/2023, 02/03/2022, 03/28/2021, Additional history exists DTaP/Tdap/Td Vaccine (3 - Td or Tdap) 01/31/2027 01/31/2017, 05/29/2010 Medical Devices Implanted Type Area [facility] Executive Director Device Identifier Shelf Expiration Date Model / Serial / Lot Stent Implanted:Qty: 1 Stent Chest Procedures Procedure Name Priority Date/Time Associated Diagnosis Comments EGFR Routine 10/08/2023 5:13 AM CDT LIPID PANEL Routine 07/03/2023 4:44 AM BUSINESS REPRESENTATIVE POCT HEMOGLOBIN A1C Routine 06/10/2023 3 :54 PM BUSINESS REPRESENTATIVE from Last 3 Months or Most Recently Relevant to Health Maintenance Results * eGFR (10/08/2023 5:13 AM CDT) eGFR >90 >=60 mL/min/1. 73 m2 Comment: Interpretive Data Reference Interval Normal >/= 90 mL/min/1.73m2 Mildly decreased* 60 - 89 mL/min/1.73m2 Mildly to moderately decreased 45 - 59 mL/min/1.73m2 Moderately to severely decreased 30 - 44 mL/min/1.73m2 Severely decreased 15 - 29 mL/min/1.73m2 Kidney Failure < 15 mL/min/1.73m2 *Relative to young adult level Estimated glomerular filtration rate is determined by the 2020 CKD-EPI equation recommended by the National Kidney Foundation (A Unifying Approach to GFR Estimation: Recommendations of the NKF-ASK Task Force on Reassessing the Inclusion of Race in Diagnosing Kidney Disease, JASN 202). The CKD-EPI equation should not be used for patients with unstable renal function and has not been validated in children and those over 70. Current interpretive data was last reviewed 2021. Blood 10/08/2023 5:13 AM CDT 10/08/2023 5:35 AM CDT us Jewell Da Silva TALENT AGENT LAB BLOOD ORDERABLES Final Result [facility] Department [place] [address] * Lipid panel (07/03/2023 4:44 AM BUSINESS REPRESENTATIVE) Cholesterol 112 30 - 199 mg/dL [facility] Comment: Interpretive Data Ages < or = 19 years Acceptable: <170 mg/dL Borderline high: 170-199 mg/dL High: >or= 200 mg/dL Ages > or = 20 years Desirable: <200 mg/dL Borderline high: 200-239 mg/dL High: >or= 240 mg/dL Literature References: 1. Expert Panel on Integrated Guidelines for Cardiovascular Health and Risk Reduction in Children and Adolescents. Pediatrics 2011;128:S213 2. NCEP Expert Panel. Circulation 2004;110:227 Current Interpretive Data was last revised on 2017. Triglycerides 50 <=149 mg/dL [facility] Comment: Interpretive Data Ages < or = 9 years Acceptable: <75 mg/dL Borderline high: 75-99 mg/dL High: >or= 100 mg/dL Ages 10 to 20 years Acceptable: <90 mg/dL Borderline high: 90-129 mg/dL High: >or= 130 mg/dL Ages > or = 20 years Desirable: <150 mg/dL Borderline high: 150-199 mg/dL High: 200-499 mg/dL Very high: >or= 499 mg/dL Literature References: 1. Expert Panel on Integrated Guidelines for Cardiovascular Health and Risk Reduction in Children and Adolescents. Pediatrics 2011;128:S213 2. NCEP Expert Panel. Circulation 2004;110:227 Current Interpretive Data was last revised on 2017. HDL 50 >=40 mg/dL [facility] Comment: Interpretive Data Ages < or = 19 years Acceptable: >45 mg/dL Borderline low: 40-45 mg/dL Low: <40 mg/dL Ages > or = 20 years Desirable: >or= 60 mg/dL Low: <40 mg/dL Literature References: 1. Expert Panel on Integrated Guidelines for Cardiovascular Health and Risk Reduction in Children and Adolescents. Pediatrics 2011;128:S213 2. NCEP Expert Panel. Circulation 2004;110:227 Current Interpretive Data was last revised on 2017. LDL, calculated 52 <=129 mg/dL [facility] Comment: Interpretive Data Ages < or = 19 years Acceptable: <110 mg/dL Borderline high: 110-129 mg/dL High: >or= 130 mg/dL Ages > or = 20 years Optimal: <100 mg/dL Near optimal: 100-129 mg/dL Borderline high: 130-159 mg/dL High: >160 mg/dL Literature References: 1. Expert Panel on Integrated Guidelines for Cardiovascular Health and Risk Reduction in Children and Adolescents. Pediatrics 2011;128:S213 2. NCEP Expert Panel. Circulation 2004;110:227 Current Interpretive Data was last revised on 2017. Non-HDL Cholesterol 62 mg/dL [facility] Comment: Interpretive Data Ages < or = 19 years Acceptable: <120 mg/dL Borderline high: 120-144 mg/dL High: >145 mg/dL Ages > or = 20 years When triglycerides are >200 mg/dL, Non-HDL cholesterol is a secondary target of therapy with treatment goals that are 30 mg/dL greater than the LDL cholesterol target. Literature References: 1. Expert Panel on Integrated Guidelines for Cardiovascular Health and Risk Reduction in Children and Adolescents. Pediatrics 2011;128:S213 2. NCEP Expert Panel. Circulation 2003;110:227 Current Interpretive Data was last revised on 2017. Chol/HDL ratio 2 [facility] Blood 07/03/2023 4:44 AM BUSINESS REPRESENTATIVE 07/03/2023 5:37 AM BUSINESS REPRESENTATIVE Eric Lynn MD LAB BLOOD ORDERABLES Final Result [facility] [place] [address] * (ABNORMAL) POCT hemoglobin A1c (06/10/2023 3:54 PM BUSINESS REPRESENTATIVE) Hgb A1C, POC 6.3(H) 4.0 - 5.6 % [facility] Est Average Gluc POC 134 mg/dL [facility] Comment: The ADA recommends reporting an estimated Average Glucose (eAG) with all Hemoglobin A1c results using the equation derived from a study of 507 normal and diabetic adults. Minority populations were underrepresented and children were not included. (Diabetes Care 31:6617-4072, 2008). The eAG is not equivalent to a fasting glucose. Blood 06/10/2023 3:54 PM BUSINESS REPRESENTATIVE 06/10/2023 3:54 PM BUSINESS REPRESENTATIVE us Rafiq Jaramillo MD POINT OF CARE TEST ORDERA BLES Final Result Performing Organization Address [facility] Co de Phone Number [facility] Department [place] [address] from Last 3 Months or Most Recently Relevant to Health Maintenance Insurance [facility] Advance Directives For more information, please contact: [phone] * Full Code (Latest Code Status on File) Date Activated Date Inactivated Comments 07/02/2023 9:10 PM 07/04/2023 5:58 PM Care Teams Delphi Developer Relationship Specialty Start Date [place] Date [place]olinar Gonzá[place] [address] [place], [place] [id number] PCP - General Family Practice 08/27/17 [place] [address] [place], [place] [id number] Referring Physician Orthopedic Surgery 09/13/23
--- OUTSIDE RECORDS SUMMARY | 2024-10-04 17:26 | XMS_ITS | Referral Summary ---
Author Organization [facility] [address] Address [address] [place] [address] Care Team Providers Care Structural Fitter Name Role Phone Apolinar Gonzáles MD Primary Care Provider [phone] Eric Lynn MD Unavailable [phone] Encounters Date Type Department Care Team Description 07/14/2024 11:00 AM PATHOLOGY LABORATORY TECHNOLOGIST Office Visit [facility] Orthopaedic Surgery [address] [facility] [address] [address] [place] [address] [place] [address] Eric Lynn MD Open wound of right thigh, initial encounter (Primary Dx) from Last 3 Months Allergies No known active allergies Medications aspirin [...] 1 tablet/capsule (400 Units total) by mouth dev manager before breakfast Active nitroglycerin (NITROSTAT) 0.4 mg [...] 2 capsules (60 mg total) by mouth dev manager before breakfast Active ipratropium-albuter oL (DUO-NEB) 0.5-2.5 [...] 1 tablet (30 mg total) by mouth dev manager before breakfast 05/21/19 24 Active acetaminophen 500 [...] her physician. - plan discussed with ortho TRAFFIC ENGINEER - we will sign off. call with [...] allergies 07/30/2017 Coronary artery disease invo lving tribal coronary artery of tribal heart without angina pectoris 02/26/2017 History of coronary artery stent placement 02/26 Morbid obesity with body mas s index (BMI) of 60.0 to 69.9 in adult 02/26/2017 Social History Tobacco Use Types Packs/Day Years [...] materials from doctor or pharmacy Never 01/20/2024 [facility] Utilities Answer Date Recorded In the past 12 months has e [employer], gas, oil, or water [employer] threatened to shut off services in your [...] week 10/09/2023 How often do you attend [facility] or druze services? Never 10/09/2023 Do you belong to any clubs o r organizations such as orthodoxy groups, unions, fraternal or athletic groups, or [...] place to sleep or slept in a fdc (including now)? No 09/26/2023 Housing Stability Vital [...] time in the past 12 m [facility], were you homeless or living in a fdc (including now)? No 10/09/2023 Personal Safety Answer Date Recorded Have you ever been in or are you currently in a harmful physical or emotional relationship or is someone making you feel afraid or unsafe? Denies 10/02/2023 Comments Unknown Sex and Gender Information Value Date Recorded Sex Assigned at Not on file Legal Sex Female 12:23 AM PATHOLOGY LABORATORY TECHNOLOGIST Gender Identity Not on file Sexual Orientation Not on file Last Filed Vital Signs Vital Sign Reading [...] 10/27/2023 1:56 PM CDT Plan of Treatment Not on file Medical Devices Implanted Type Area Carbon Paper Machine Operator Device Identifier Shelf Expiration Date Model / Serial / Lot Stent Implanted:Qty: 1 Stent Chest Procedures Procedure Name Priority Date/Time Associated Diagnosis Comments EGFR Routine 10/08/2023 5:13 AM CDT LIPID PANEL Routine 07/03/2023 4:44 AM PATHOLOGY LABORATORY TECHNOLOGIST POCT HEMOGLOBIN A1C Routine 06/10/2023 3 :54 PM PATHOLOGY LABORATORY TECHNOLOGIST from Last 3 Months or Most Recently [...] of Race in Diagnosing Kidney Disease, JASN 2020). The CKD-EPI equation should not be used for patients with unstable renal function and has not been validated in children and those over 70. Current interpretive data was last reviewed 2021. Blood 10/08/2023 5:13 AM CDT 10/08/2023 5:35 AM CDT Jewell Da Silva TRAFFIC ENGINEER LAB BLOOD ORDERABLES Final Result INDRA MARCUS [facility] [place] [address] * Lipid panel (07/03/2023 4:44 AM PATHOLOGY LABORATORY TECHNOLOGIST) Cholesterol 112 30 - 199 mg/dL INDRA [...] revised on 2017. HDL 50 >=40 mg/dL [facility] Comment: Interpretive Data Ages < or = [...] on 2017. LDL, calculated 52 <=129 mg/dL [facility] Comment: Interpretive Data Ages < or = [...] revised on 2017. Non-HDL Cholesterol 62 mg/dL [facility] Comment: Interpretive Data Ages < or = [...] last revised on 2017. Chol/HDL ratio 2 [facility] Blood 07/03/2023 4:44 AM PATHOLOGY LABORATORY TECHNOLOGIST 07/03/2023 5:37 AM PATHOLOGY LABORATORY TECHNOLOGIST Eric Lynn MD LAB BLOOD ORDERABLES Final Result Performing Organization Address [facility] de Phone Number [facility] [place] [address] * (ABNORMAL) POCT hemoglobin A1c (06/10/2023 3:54 PM PATHOLOGY LABORATORY TECHNOLOGIST) Hgb A1C, POC 6.3(H) 4.0 - 5.6 % [facility] Est Average Gluc POC 134 mg/dL [facility] Comment: The ADA recommends reporting an estimated Average Glucose (eAG) with all Hemoglobin A1c results using the equation derived from a study of 507 normal and diabetic adults. Minority populations were underrepresented and children were not included. (Diabetes Care 31:4506-8696, 2008). The eAG is not equivalent to a fasting glucose. Blood 06/10/2023 3:54 PM PATHOLOGY LABORATORY TECHNOLOGIST 06/10/2023 3:54 PM PATHOLOGY LABORATORY TECHNOLOGIST us Rafiq Jaramillo MD POINT OF CARE TEST ORDERA BLES Final Result Performing Organization Address [facility] de Phone Number [facility] [place] [address] from Last 3 Months or Most Recently Relevant to Health Maintenance Insurance ANTHONY GONZALEZ [facility] Advance Directives For more information, please contact: [phone] * Full Code (Latest Code Status on File) Date Activated Date Inactivated Comments 07/02/2023 9:10 PM 07/04/2023 5:58 PM Care Teams Structural Fitter Relationship Specialty Start Date End Date Apolinar Gonzá[place] [address] [address] [place] [address] PCP - General Family Practice 08/27/17 [place] [address] [address] [place] [address] Referring Physician Orthopedic Surgery 09/13/23
--- OUTSIDE RECORDS SUMMARY | 2024-10-04 17:26 | XMS_ITS | Clinical Summary ---
Author Organization [facility] Address [address], [facility] [address] [place] [address] Phone Care Team Providers Care Wreath And Garland Maker Name Role Phone Provider, Unknown Primary Care Provider Unavaila Paul Perea DO Unavailable [phone] Allergies No known active allergies Medications montelukast (SINGULAIR) 10 MG Tablet Take 10 mg by mouth every evening. Active simvastatin (ZOCOR) 20 MG Tablet Take 20 mg by mouth every evening. Active clopidogrel (PLAVIX) 75 MG Tablet Take 75 mg by mouth daily. Active metFORMIN (GLUCOPHAGE) 500 MG Tablet Take 500 mg by mouth 2 times daily (with meals). Two tablets twice daily Active Multiple Vitamins-Minera ls (COMPLETE MULTIVITAMIN/MS NERAL PO) Take by mouth daily. Active lisinopril (PRINIVIL, ZESTRIL) 20 MG Tablet Take 20 mg by mouth daily. Active albuterol (PROAIR HFA) 108 (90 BASE) MCG/ACT Aerosol Solution take 2 Puffs by inhalation every 4 hours as needed for Wheezing. Active Aspirin 81 MG Tablet Take 81 mg by mouth daily. Active pioglitazone (ACTOS) 30 MG Tablet Take 30 mg by mouth daily. Active FLUTICASONE-LIANET METEROL IN take by inhalation. Active ibuprofen (MOTRIN) 600 MG Tablet Take 600 mg by mouth every 8 hours. Active Family History Medical History Relation Name Comments Colon Cancer Father Skin Cancer Father Leukemia/Lymphoma Mother Relation Name Status Comments Father Mother Social History Tobacco Use Types Packs/Day Years Used Date Smoking Tobacco: Every Day Cigarettes 1 35 Alcohol Use Standard Drinks/Week Comments Yes 0 (1 standard drink = 0.6 oz pur e alcohol) Comments Unknown Sex and Gender Information Value Date Recorded Sex Assigned at Not on file Legal Sex Female 1:36 PM CDT Gender Identity Not on file Sexual Orientation Not on file Plan of Treatment Health Maintenance Due Date Last Done Comments Hepatitis C Virus (HCV) Screening 1965 TdaP Immunization 1965 Hepatitis B Immunization (1 of 3 - 19+ 3-dose series) 10/20/1983 Cologuard 2014 Immunochemical Fecal Occult Blood 2014 Mammogram 2014 Pneumococcal Immunization (5 0+ years) (1 of 1 - PCV) 2014 Zoster Immunization (1 of 2) 2014 Influenza Immunization (#1) 2024 SARS-COV-2 Immunization ( - season) 2024 Colonoscopy 12/12/2025 12/13/2015 Colorectal Cancer Screening 12/12/2025 Respiratory Syncytial Virus (RSV) Immunization (Adult) (1 - 1-dose 75+ series) 10/20/2039 12/13/2015 Meningococcal Immunization (ACWY) Aged Out No longer eligible based on patient's age to complete this topic Pneumococcal Immunization Combined Aged Out No longer eligible based on patient's age to complete this topic Rotavirus Immunization Aged Out No lo nger eligible based on patient's age to complete this topic Procedures Procedure Name Priority Date/Time Associated Diagnosis Comments COLONOSCOPY Routine 12/13/2015 from Last 3 Months or Most Recently Relevant to Health Maintenance Results * COLONOSCOPY (12/13/2015) Paul Harris DO PROCEDURE/MINOR SURGICAL ORDERA BLES Final Result from Last 3 Months or Most Recently Relevant to Health Maintenance Care Teams Wreath And Garland Maker Relationship Specialty Start Date End Date Provider, Unknown UNKNOWN PCP - General 12/18/15 Paul Harris, UNKNOWN Gastroenterology 12/18/15
--- NOTE | 2024-10-04 19:51 | ECG_ITS ---
Test Date: 2024-10-04 22:53:22 Measurements Intervals [place] Rate: 88 P: 68 RI: 178 QRS: 8 QRSD: 101 T: 42 QT: 374 QTc: 454 Interpretive Statements SINUS RHYTHM LOW QRS VOLTAGE IN PRECORDIAL LEADS [QRS DEFLECTION < 1.0 mV IN CHEST LEADS] No previous ECG available for comparison Electronically Signed On 10-05-2024 16:36:50 CDT by Kevin Mckeon M.D.
[2024-10-04 21:11] LABS: Basophils Percent Auto 0.1 % (0.2-1.2); Eosinophils Percent Auto 0.1 % (0-4.4); Hemoglobin 11.8 g/dL (12.0-15.0); Immature Granulocyte Absolute 0.18 K/mm3 (0.00-0.031); Immature Granulocyte Percent A 1.1 % (0-0.5); Lymphocytes Absolute Auto 0.87 K/mm3 (0.9-3.2); Lymphocytes Percent Auto 5.3 % (18.3-44.2); Mean Corpuscular HGB Conc 32.8 g/dl (32-36); Mean Corpuscular Volume 97.6 fl (80-100); Mean Platelet Volume 8.7 fl (7.4-10.4); Monocytes Absolute Auto 0.5 K/mm3 (0.1-0.6); Monocytes Percent Auto 2.9 % (2.6-8.5); Neutrophils Absolute Auto 14.7 K/mm3 (1.3-6.7); Neutrophils Percent Auto 90.5 % (45.5-73.1); Platelet Count Result 309 k/mm3 (150-375); Red Blood Count 3.69 M/mm3 (4.2-5.4); Red Cell Distribution Width 15.4 % (11.5-14.5); White Blood Count 16.3 K/mm3 (4.5-10.0)
[2024-10-04 21:41] LABS: Alanine Aminotransferase 20 U/L (6-35); Albumin Level 3.9 g/dL (3.5-5.1); Alkaline Phosphatase 58 U/L (38-126); Anion Gap 8 mmol/L (4-12); Aspartate Amino Transferase 26 U/L (14-36); Bilirubin,Total 0.9 mg/dL (0.2-1.3); Blood Urea Nitrogen 19 mg/dL (7-17); Calcium 8.9 mg/dL (8.4-10.2); Carbon Dioxide 26 mmol/L (22-30); Chloride 97 mmol/L (98-107); Estimated CRCL calculation 137 ml/min; Estimated Glomerular Filt Rate > 60; Glucose 142 mg/dL (65-110); Potassium 3.9 mmol/L (3.4-5.0); Sodium 131 mmol/L (137-145)
[2024-10-04 23:10] VITALS: PULSE 92; RESP 23; O2SAT 100
[2024-10-04 23:11] VITALS: BP 139/62; PULSE 90; RESP 19; O2SAT 100
--- OUTSIDE RECORDS SUMMARY | 2024-10-04 23:19 | XMS_ITS | Clinical Summary ---
Author Organization [facility] [address] Address [address] [place] [address] Care Team Providers Care Case Planner Name Role Phone Apolinar Gonzáles MD Primary Care Provider [phone] Eric Lynn MD Unavailable [phone] Allergies No known active allergies Medications aspirin [...] 1 tablet/capsule (400 Units total) by mouth associate artistic director before breakfast Active nitroglycerin (NITROSTAT) 0.4 mg [...] 2 capsules (60 mg total) by mouth associate artistic director before breakfast Active ipratropium-albuter oL (DUO-NEB) 0.5-2.5 [...] 1 tablet (30 mg total) by mouth associate artistic director before breakfast 05/21/19 24 Active acetaminophen 500 [...] her physician. - plan discussed with ortho CLOTH STRETCHER - we will sign off. call with [...] allergies 07/30/2017 Coronary artery disease invo lving [place] coronary artery of [place] heart without angina pectoris 02/26/2017 History of coronary artery stent placement 02/26 Morbid obesity with body mas s index (BMI) of 60.0 to 69.9 in adult 02/26/2017 Encounters Date Type Department Care Team Description 07/14/2024 11:00 AM CHRISTIAN SCIENCE NURSE Office Visit [facility] Orthopaedic Surgery [address] 6th [place] [address] [place] [address] Eric Lynn MD Open wound of right [...] materials from doctor or pharmacy Never 01/20/2024 [facility] Utilities Answer Date Recorded In the [...] often do you attend chur ch or orthodoxy services? Never 10/09/2023 Do you belong to any clubs o r organizations such as restorationism groups, unions, fraternal or athletic groups, or [...] place to sleep or slept in a detention (including now)? No 09/26/2023 Housing Stability Vital Sign Answer Martell e Recorded In the last 12 months, was t here a time when you were not able to pay the mortgage or rent on time? No 10/09/2023 In the past 12 months, how m any times have you moved where you were living? 1 10/09/2023 At any time in the past 12 m [facility], were you homeless or living in a detention (including now)? No 10/09/2023 Personal Safety Answer Date Recorded Have you ever been in or are you currently in a harmful physical or emotional relationship or is someone making you feel afraid or unsafe? Denies 10/02/2023 Comments Unknown Sex and Gender Information Value Date Recorded Sex Assigned at Not on file Legal Sex Female 12:23 AM CHRISTIAN SCIENCE NURSE Gender Identity Not on file Sexual Orientation [...] 01/31/2017, 05/29/2010 Medical Devices Implanted Type Area Medical Office Administrator Device Identifier Shelf Expiration Date Model / Serial / Lot Stent Implanted:Qty: 1 Stent Chest Procedures Procedure Name Priority Date/Time Associated Diagnosis Comments EGFR Routine 10/08/2023 5:13 AM CDT LIPID PANEL Routine 07/03/2023 4:44 AM CHRISTIAN SCIENCE NURSE POCT HEMOGLOBIN A1C Routine 06/10/2023 3 :54 PM CHRISTIAN SCIENCE NURSE from Last 3 Months or Most Recently [...] 5:35 AM CDT us Jewell Da Silva CLOTH STRETCHER LAB BLOOD ORDERABLES Final Result INDRA MARCUS [facility] Department [place] [address] * Lipid panel (07/03/2023 4:44 AM CHRISTIAN SCIENCE NURSE) Cholesterol 112 30 - 199 mg/dL INDRA [...] 2 [facility]US Blood 07/03/2023 4:44 AM CHRISTIAN SCIENCE NURSE 07/03/2023 5:37 AM CHRISTIAN SCIENCE NURSE Eric Lynn MD LAB BLOOD ORDERABLES Final Result [facility] [address] [facility] Department [place] [address] * (ABNORMAL) POCT hemoglobin A1c (06/10/2023 3:54 PM CHRISTIAN SCIENCE NURSE) Hgb A1C, POC 6.3(H) 4.0 - 5.6 % [facility] Est Average Gluc POC 134 mg/dL [facility] Comment: The ADA recommends reporting an estimated Average Glucose (eAG) with all Hemoglobin A1c results using the equation derived from a study of 507 normal and diabetic adults. Minority populations were underrepresented and children were not included. (Diabetes Care 31:4121-7077, 2008). The eAG is not equivalent to a fasting glucose. Blood 06/10/2023 3:54 PM CHRISTIAN SCIENCE NURSE 06/10/2023 3:54 PM CHRISTIAN SCIENCE NURSE us Rafiq Jaramillo MD POINT OF CARE TEST ORDERA BLES Final Result Performing Organization Address [facility] Co de Phone Number [facility] [address] [facility] [place] [address] from Last 3 Months or Most Recently Relevant to Health Maintenance Insurance [facility] Advance Directives For more information, please contact: [phone] * Full Code (Latest Code Status on File) Date Activated Date Inactivated Comments 07/02/2023 9:10 PM 07/04/2023 5:58 PM Care Teams Case Planner Relationship Specialty Start Date End Date Apolinar Gonzáles [place] [address] [place], [place] [id number] PCP - General Family Practice 08/27/17 [place] [address] [address] [place], [place] [phone] Referring Physician Orthopedic Surgery 09/13/23
--- OUTSIDE RECORDS SUMMARY | 2024-10-04 23:19 | XMS_ITS | Clinical Summary ---
Author Organization [facility] Address [address], [facility] [address] [place] [address] Phone Care Team Providers Care Veneer Jointer Operator Name Role Phone Provider, Unknown Primary Care Provider Unavaila Paul Perea DO Unavailable [phone] Allergies No known active allergies Medications [...] twice daily Active Multiple Vitamins-Minera ls (COMPLETE MULTIVITAMIN/[place] NERAL PO) Take by mouth daily. Active [...] Recently Relevant to Health Maintenance Care Teams Veneer Jointer Operator Relationship Specialty Start Date End Date Provider, Unknown UNKNOWN PCP - General 12/18/15 Paul Harris, UNKNOWN Gastroenterology 12/18/15
--- OUTSIDE RECORDS SUMMARY | 2024-10-04 23:19 | XMS_ITS | Referral Summary ---
Author Organization [facility] [address] Address [address] [place] [address] Care Team Providers Care Residential Solar Consultant Name Role Phone Apolinar Gonzáles MD Primary Care Provider [phone] Eric Lynn MD Unavailable Encounters Date Type Department Care Team Description 07/14/2024 11:00 AM NUTRITION AIDES TEACHER Office Visit [facility] Orthopaedic Surgery [address] [facility] 6th [place] [address] [place] [address] Eric Lynn MD Open wound of right [...] 1 tablet/capsule (400 Units total) by mouth bicycle inspector before breakfast Active nitroglycerin (NITROSTAT) 0.4 mg [...] 2 capsules (60 mg total) by mouth bicycle inspector before breakfast Active ipratropium-albuter oL (DUO-NEB) 0.5-2.5 [...] 1 tablet (30 mg total) by mouth bicycle inspector before breakfast 05/21/19 24 Active acetaminophen 500 [...] her physician. - plan discussed with ortho DEPUTY BUILDING GUARD - we will sign off. call with [...] allergies 07/30/2017 Coronary artery disease invo lving [place] coronary artery of [place] heart without angina pectoris 02/26/2017 History of [...] materials from doctor or pharmacy Never 01/20/2024 [facility] Utilities Answer Date Recorded In the past 12 months has e [employer], gas, oil, or water [employer] threatened to shut off services in your [...] week 10/09/2023 How often do you attend [facility] or islam services? Never 10/09/2023 Do you belong to any clubs o r organizations such as yarsanism groups, unions, fraternal or athletic groups, or [...] place to sleep or slept in a penitentiary (including now)? No 09/26/2023 Housing Stability Vital Sign Answer Martell e Recorded In the last 12 months, was t here a time when you were not able to pay the mortgage or rent on time? No 10/09/2023 In the past 12 months, how m any times have you moved where you were living? 1 10/09/2023 At any time in the past 12 m [facility], were you homeless or living in a penitentiary (including now)? No 10/09/2023 Personal Safety Answer Date Recorded Have you ever been in or are you currently in a harmful physical or emotional relationship or is someone making you feel afraid or unsafe? Denies 10/02/2023 Comments Unknown Sex and Gender Information Value Date Recorded Sex Assigned at Not on file Legal Sex Female 12:23 AM NUTRITION AIDES TEACHER Gender Identity Not on file Sexual Orientation [...] on file Medical Devices Implanted Type Area Physician Assistant Certified Device Identifier Shelf Expiration Date Model / Serial / Lot Stent Implanted:Qty: 1 Stent Chest Procedures Procedure Name Priority Date/Time Associated Diagnosis Comments EGFR Routine 10/08/2023 5:13 AM CDT LIPID PANEL Routine 07/03/2023 4:44 AM NUTRITION AIDES TEACHER POCT HEMOGLOBIN A1C Routine 06/10/2023 3 :54 PM NUTRITION AIDES TEACHER from Last 3 Months or Most Recently [...] 10/08/2023 5:35 AM CDT Jewell Da Silva DEPUTY BUILDING GUARD LAB BLOOD ORDERABLES Final Result INDRA MARCUS [facility] Department [place] [address] * Lipid panel (07/03/2023 4:44 AM NUTRITION AIDES TEACHER) Cholesterol 112 30 - 199 mg/dL INDRA [...] revised on 2017. HDL 50 >=40 mg/dL [facility] Comment: Interpretive Data Ages < or = [...] on 2017. LDL, calculated 52 <=129 mg/dL [facility] Comment: Interpretive Data Ages < or = [...] revised on 2017. Non-HDL Cholesterol 62 mg/dL [facility] Comment: Interpretive Data Ages < or = [...] last revised on 2017. Chol/HDL ratio 2 [facility] Blood 07/03/2023 4:44 AM NUTRITION AIDES TEACHER 07/03/2023 5:37 AM NUTRITION AIDES TEACHER Eric Lynn MD LAB BLOOD ORDERABLES Final Result Performing Organization Address [facility] de Phone Number [facility] Department [place] [address] * (ABNORMAL) POCT hemoglobin A1c (06/10/2023 3:54 PM NUTRITION AIDES TEACHER) Hgb A1C, POC 6.3(H) 4.0 - 5.6 % [facility] Est Average Gluc POC 134 mg/dL [facility] Comment: The ADA recommends reporting an estimated Average Glucose (eAG) with all Hemoglobin A1c results using the equation derived from a study of 507 normal and diabetic adults. Minority populations were underrepresented and children were not included. (Diabetes Care 31:8902-5538, 2008). The eAG is not equivalent to a fasting glucose. Blood 06/10/2023 3:54 PM NUTRITION AIDES TEACHER 06/10/2023 3:54 PM NUTRITION AIDES TEACHER us Rafiq Jaramillo MD POINT OF CARE TEST ORDERA BLES Final Result Performing Organization Address [facility] de Phone Number [facility] Department [place] [address] from Last 3 Months or Most Recently Relevant to Health Maintenance Insurance ANTHONY GONZALEZ [facility] Advance Directives For more information, please contact: [phone] * Full Code (Latest Code Status on File) Date Activated Date Inactivated Comments 07/02/2023 9:10 PM 07/04/2023 5:58 PM Care Teams Residential Solar Consultant Relationship Specialty Start Date End Date Apolinar Gonzáles [place] [address] [address] [place] [id number] PCP - General Family Practice 08/27/17 [place] [address] [address] [place] [address] Referring Physician Orthopedic Surgery 09/13/23
--- NOTE | 2024-10-04 23:23 | PC.NURSE ---
surgical incision to right inner thigh with small clear drainage. redness and 3+ edema to right leg
[2024-10-04 23:24] VITALS: BP 139/62; PULSE 88; RESP 18; O2SAT 97
[2024-10-04 23:25] VITALS: PULSE 85; RESP 16
[2024-10-04 23:31] LABS: Add Urine Microscopic? YES; Appearance Urine Turbid (Clear); Bacteria Urine 4+ /hpf; Bilirubin Urine 2+ (Negative); Blood Urine 1+ (Negative); Budding Yeast Urine Present /hpf; Color Urine Dark Yellow (Yellow); Glucose Urine UA Negative (Negative); Hyaline Casts Urine Present /lpf; Ketones Urine Trace mg/dL (Negative); Leukocyte Esterase Ur 2+ LEU/UL (Negative); Need Manual Microscopic Reviewed; Nitrate Urine Positive (Negative); Protein Urine 1+ mg/dL (Negative); RBC Urine 51-100 /hpf (0-2); Specific Grav Ur 1.028 (1.001-1.035); Squamous Epithelial Cell Urine Many /hpf (Few); WBC Urine 21-50 /hpf (0-3); pH Urine 5.5 (5.0-9.0)
--- NOTE | 2024-10-04 23:46 | ED_ITS ---
HPI - Skin/Abscess/Foreign Bdy General Chief complaint: Skin/Abscess/Foreign Body <Rina Fitch APRN - Last Filed: 10/05/24 04:30> Stated complaint: right leg pain, redness <Rina Fitch APRN - Last Filed: 10/05/24 04:30> Time Seen by Provider: 10/04/24 22:52 <Rina Fitch APRN - Last Filed: 10/05/24 04:30> History of Present Illness HPI narrative: Patient is a 58-year-old female who presents to the ER with right lower extremity redness and swelling. She reports her right lower extremity became sore earlier today around noon. When she assessed her right lower extremity she noticed it was bright red and swollen. Patient reports she has a history of cellulitis in her right lower extremity. She endorses a history of diabetes, hypertension, COPD and hyperlipidemia. Patient denies any shortness of breath, recent fevers, or urinary symptoms. She reports she takes Plavix daily d/t a cardiac stent. <Rina Fitch APRN - Last Filed: 10/05/24 04:30> Related Data Home medications: Home Medications ?Medication ?Instructions ?Recorded ?Confirmed ?Last Taken ?Type albuterol sulfate 90 mcg/actuation 90 mcg inhalation DIRECTED 11/25/20 09/23/22 Unknown History aerosol inhaler aspirin 81 mg tablet 81 mg PO DAILY 11/25/20 09/23/22 Unknown History buspirone 7.5 mg tablet 7.5 mg TID 11/25/20 09/23/22 Unknown History carvedilol 6.25 mg tablet 6.25 mg BID 11/25/20 09/23/22 Unknown History clopidogrel 75 mg tablet 75 mg PO DAILY 11/25/20 09/23/22 Unknown History cyclobenzaprine 10 mg tablet 10 mg DIRECTED PRN Muscle Spasm 11/25/20 09/23/22 Unknown History fluticasone 250 mcg-salmeterol 50 1 inh inhalation DIRECTED 11/25/20 09/23/22 Unknown History mcg/dose blistr powdr for inhalation lisinopril 20 mg tablet 20 mg DAILY 11/25/20 09/23/22 Unknown History metformin 500 mg tablet 1,000 mg BID 11/25/20 09/23/22 Unknown History montelukast 10 mg tablet 10 mg DAILY 11/25/20 09/23/22 Unknown History pioglitazone 30 mg tablet 30 mg DAILY 11/25/20 09/23/22 Unknown History simvastatin 20 mg tablet 20 mg DAILY 11/25/20 09/23/22 Unknown History vitamin B complex 1 cap PO DAILY 11/25/20 09/23/22 Unknown History methotrexate sodium 2.5 mg tablet 2.5 mg PO DIRECTED 06/17/22 09/23/22 Unknown History <Rina Fitch APRN - Last Filed: 10/05/24 04:30> Allergies/Adverse reactions: Allergies Allergy/AdvReac Type Severity Reaction Status Date / Time No Known Allergies Allergy Verified 03/28/24 20:46 <Rina Fitch APRN - Last Filed: 10/05/24 04:30> Review of Systems 2 Review of Systems: All systems reviewed & are unremarkable except as noted in HPI and below <Rina Fitch APRN - Last Filed: 10/05/24 04:30> [facility] Past Medical History Medical History: Medical History Tear of meniscus of right knee Intestinal fistula Diabetes CAD (coronary artery disease) COPD (chronic obstructive pulmonary disease) <Rina Fitch APRN - Last Filed: 10/05/24 04:30> Surgical History Surgical History: Surgical History History of hysterectomy <Rina Fitch APRN - Last Filed: 10/05/24 04:30> Family History Family History: Family History Mother Patient's mother is in good health Father Carcinoma of colon Family history of diabetes mellitus in first degree relative Family history of heart disease in male family member before age 55 Patient's father is Sibling Family history of diabetes mellitus in first degree relative Family history of heart disease in male family member before age 55 <Rina Fitch APRN - Last Filed: 10/05/24 04:30> Social History Social History: Social History Smoking status: Current every day smoker Alcohol intake: current <Rina Fitch APRN - Last Filed: 10/05/24 04:30> Exam 2 Narrative: GENERAL: Well appearing, obese, non-toxic, in no acute distress. HEAD: Normocephalic, atraumatic. NECK: Supple. No adenopathy, no masses. RESPIRATORY: Airway patent, respirations nonlabored. Clear to auscultation bilaterally, no rales, rhonchi, wheezing. CARDIOVASCULAR: Regular rate and rhythm without murmurs, rubs, or gallops. Peripheral pulses 2+ and equal bilaterally. ABDOMINAL: Soft, nontender, nondistended, no hepatosplenomegaly. Normoactive BS. MUSCULOSKELETAL: Moves all extremities. Strength/ROM intact. SKIN: Warm, dry, normal color. Significant redness, swelling, and pitting edema on right lower extremity that travels up to patient's right thigh. Mild weeping at the anterior calf. Open dime-sized wound to pt's R groin and on her R buttocks from lipoma removal approximately one year ago. NEURO: A&O X3. Speech clear. Cranial nerves II-XII intact. No ataxic movements. PSYCHIATRIC: Appropriate mood and affect. Normal interaction. <Rina Fitch APRN - Last Filed: 10/05/24 04:30> Course Course Emergency Course: Patient care endorsed to me by previous provider pending CT scan. I went and re-evaluated the patient who had right lower extremity cellulitis evident on examination with progression for the last day. No history of cellulitis but she does have wounds to her extremities from previous lipoma being removed at [facility] as well as there appears to be venous dermatitis. She does have asymmetric legs but more clinical signs and symptoms point towards severe cellulitis rather than any vascular anomaly. She has strong symmetric pulses and good perfused extremity. She is currently on antibiotics with vancomycin Ancef. Patient does have a leukocytosis but negative lactic acid. I discussed the plan of care with the patient including admission the hospital for continued IV antibiotics and repeat evaluations. Patient comfortable with this plan. Hospitalist was spoken to and awaiting final CT read prior to admission. Spoke to the hospitalist who accepted the patient for admission at this time after the CT scan shows diffuse cellulitis but no abscess formation. Patient remained hemodynamically stable at this time on antibiotics and admitted to the hospital for observation admission. <Trever Choudhury MD - Last Filed: 10/05/24 06:32> Vital Signs Vital signs: Vital Signs Temperature 36.8 C 10/04/24 17:26 Pulse Rate 101 H 10/04/24 17:26 Respiratory Rate 16 10/04/24 17:26 Blood Pressure 118/49 L 10/04/24 17:26 Pulse Oximetry 100 10/04/24 17:26 Oxygen Delivery Room Air 10/04/24 17:26 Temperature 36.8 C 10/04/24 17:26 Pulse Rate 90 10/05/24 03:02 Respiratory Rate 19 10/05/24 03:02 Blood Pressure 114/61 10/05/24 03:02 Pulse Oximetry 99 10/05/24 03:02 Oxygen Delivery Room Air 10/04/24 17:26 <Rina Fitch APRN - Last Filed: 10/05/24 04:30> Vital Signs Temperature 36.8 C 10/04/24 17:26 Pulse Rate 101 H 10/04/24 17:26 Respiratory Rate 16 10/04/24 17:26 Blood Pressure 118/49 L 10/04/24 17:26 Pulse Oximetry 100 10/04/24 17:26 Oxygen Delivery Room Air 10/04/24 17:26 Temperature 36.8 C 10/04/24 17:26 Pulse Rate 90 10/05/24 03:02 Respiratory Rate 19 10/05/24 03:02 Blood Pressure 114/61 10/05/24 03:02 Pulse Oximetry 99 10/05/24 03:02 Oxygen Delivery Room Air 10/04/24 17:26 <Trever Choudhury MD - Last Filed: 10/05/24 06:32> MDM - Skin/Abscess/Foreign Bdy MDM Narrative Medical decision making narrative: Patient is a 58-year-old female who presents to the ER with right lower extremity redness and swelling. She reports her right lower extremity became sore earlier today around noon. When she assessed her right lower extremity she noticed it was bright red and swollen. Patient reports she has a history of cellulitis in her right lower extremity. She endorses a history of diabetes, hypertension, COPD and hyperlipidemia. Patient denies any shortness of breath, recent fevers, or urinary symptoms. She reports she takes Plavix daily d/t a cardiac stent. Labs Ordered: CBC, CMP, coags, CRP, UA, procalcitonin, INR, PTT, Imaging Ordered: Right femur x-ray, right lower extremity CT scan Medications Ordered: Cefazolin IV, 1 L normal saline IV x 2, morphine 4 mg IV x 2, Vancomycin IV Results: Patient's right femur x-ray indicates No acute osseous abnormality of the right femur. Osteopenia around the right knee joint. Severe osteoarthritic changes of the right knee. Pt's CT scan indicates Diagnosis: Right lower extremity cellulitis Risks: ALT-70 Score for Cellulitis ALT-70 Score for Cellulitis from [email or web address] on 10/05/2024 All calculations should be rechecked by clinician prior to use RESULT SUMMARY: 5 points ALT-70 Score Treat >82.2% likelihood of true cellulitis INPUTS: Asymmetric ?> 3 = Yes Age >=0 years ?> 0 = No WBC in ED >=0,000/?L ?> 1 = Yes HR in ED >=0 bpm ?> 1 = Yes Patient Education/Shared MDM: Results of lab work and x-ray imaging shared with patient. Patient endorses pain relief following morphine administration. Pt would like to be able to be discharged home on oral antibiotics. It was explained to pt that further work-up is required before making this decision. 0330- Pt endorses ongoing pain in her RLE. Will give her another dose of Morphine 4mg IV. She will be given another 1L NS IV bolus. 0400- Still awaiting CT scan results. Plan to admit pt to the hospital. 0430-Spoke with Dr. Washington, hospitalist, who would like to have a confirmed CT scan reading prior to admitting. Will contact pt once official reading is back. <Rina Fitch APRN - Last Filed: 10/05/24 04:30> Differential Diagnosis Differential diagnosis: Likely abscess of skin or subcutaneous tissue, cellulitis, contact dermatitis and other (Sepsis) <Rina Fitch APRN - Last Filed: 10/05/24 04:30> Medical Records Attestation: I reviewed the patient's medical records. <Trever Choudhury MD - Last Filed: 10/05/24 06:32> Lab Data Attestation: I reviewed the patient's lab results. <Rina Fitch APRN - Last Filed: 10/05/24 04:30> I reviewed the patient's lab results. <Trever Choudhury MD - Last Filed: 10/05/24 06:32> Result diagrams: 10/04/24 20:59 10/04/24 20:59 <Rina Fitch APRN - Last Filed: 10/05/24 04:30> Labs: Lab Results 10/04/24 10/04/24 10/05/24 Range/Units 20:59 23:09 00:11 WBC 16.3 H (4.5-10.0) K/mm3 RBC 3.69 L (4.2-5.4) M/mm3 Hgb 11.8 L (12.0-15.0) g/dL Hct 36.0 L (37.0-47.0) % MCV 97.6 (80-100) fl MCH 32.0 (26-34) pg MCHC 32.8 (32-36) g/dl RDW 15.4 H (11.5-14.5) % Plt Count 309 (150-375) k/mm3 MPV 8.7 (7.4-10.4) fl Immature Gran % (Auto) 1.1 H (0-0.5) % Neut % (Auto) 90.5 H (45.5-73.1) % Lymph % (Auto) 5.3 L (18.3-44.2) % [place] % (Auto) 2.9 (2.6-8.5) % Eos % (Auto) 0.1 (0-4.4) % Baso % (Auto) 0.1 L (0.2-1.2) % Lymph # (Auto) 0.87 L (0.9-3.2) K/mm3 [place] # (Auto) 0.5 (0.1-0.6) K/mm3 Eos # (Auto) 0.0 (0-0.3) K/mm3 Baso # (Auto) 0.0 (0.0-0.1) K/mm3 Abs Immat Gran (auto) 0.18 H (0.00-0.031) K/mm3 Absolute Neuts (auto) 14.7 H (1.3-6.7) K/mm3 Absolute Nucleated RBC 0.000 (0.0-0.012) K/mm3 Nucleated RBC % 0.0 (0.0-0.2) % PT 13.4 (11.1-14.7) Seconds INR 1.0 APTT < 20.0 L (22.3-36.8) Seconds Sodium 131 L (137-145) mmol/L Potassium 3.9 (3.4-5.0) mmol/L Chloride 97 L (98-107) mmol/L Carbon Dioxide 26 (22-30) mmol/L Anion Gap 8 (4-12) mmol/L BUN 19 H (7-17) mg/dL Creatinine 0.58 L (0.7-1.0) mg/dL Estim Creat Clear Calc 137 ml/min Estimated GFR > 60 (59 - ) Glucose 142 H (65-110) mg/dL Lactic Acid (0.7-2.0) mmol/L Calcium 8.9 (8.4-10.2) mg/dL Total Bilirubin 0.9 (0.2-1.3) mg/dL AST 26 (14-36) U/L ALT 20 (6-35) U/L Alkaline Phosphatase 58 (38-126) U/L C-Reactive Protein 6.7 H (<1.0) mg/dL Total Protein 7.0 (6.3-8.2) g/dL Albumin 3.9 (3.5-5.1) g/dL Procalcitonin 0.4 ng/mL Urine Color Dark yellow (Yellow) Urine Appearance Turbid H (Clear) Urine pH 5.5 (5.0-9.0) Ur Specific [place] 1.028 (1.001-1.035) Urine Protein 1+ H (Negative) mg/dL Urine Glucose (UA) Negative (Negative) mg/dL Urine Ketones Trace H (Negative) mg/dL Ur Blood (Man) 1+ H (Negative) Urine Nitrate Positive H (Negative) Urine Bilirubin 2+ H (Negative) Urine Urobilinogen 1.0 (<2.0) mg/dL Add Ur Microanalysis Reviewed Leukocyte Esterase Rfl 2+ H (Negative) EL/UL Urine RBC 51-100 H (0-2) /hpf Urine WBC 21-50 H (0-3) /hpf Ur Squamous Epith Cells Many H (Few) /hpf Urine Bacteria 4+ H /hpf Urine Casts 6-10 Hyaline Casts Present (None) /lpf Urine Yeast (Budding) Present H (None) /hpf 10/05/24 Range/Units 00:12 WBC (4.5-10.0) K/mm3 RBC (4.2-5.4) M/mm3 Hgb (12.0-15.0) g/dL Hct (37.0-47.0) % MCV (80-100) fl MCH (26-34) pg MCHC (32-36) g/dl RDW (11.5-14.5) % Plt Count (150-375) k/mm3 MPV (7.4-10.4) fl Immature Gran % (Auto) (0-0.5) % Neut % (Auto) (45.5-73.1) % Lymph % (Auto) (18.3-44.2) % [place] % (Auto) (2.6-8.5) % Eos % (Auto) (0-4.4) % Baso % (Auto) (0.2-1.2) % Lymph # (Auto) (0.9-3.2) K/mm3 [place] # (Auto) (0.1-0.6) K/mm3 Eos # (Auto) (0-0.3) K/mm3 Baso # (Auto) (0.0-0.1) K/mm3 Abs Immat Gran (auto) (0.00-0.031) K/mm3 Absolute Neuts (auto) (1.3-6.7) K/mm3 Absolute Nucleated RBC (0.0-0.012) K/mm3 Nucleated RBC % (0.0-0.2) % PT (11.1-14.7) Seconds INR APTT (22.3-36.8) Seconds Sodium (137-145) mmol/L Potassium (3.4-5.0) mmol/L Chloride (98-107) mmol/L Carbon Dioxide (22-30) mmol/L Anion Gap (4-12) mmol/L BUN (7-17) mg/dL Creatinine (0.7-1.0) mg/dL Estim Creat Clear Calc ml/min Estimated GFR (59 - ) Glucose (65-110) mg/dL Lactic Acid 1.8 (0.7-2.0) mmol/L Calcium (8.4-10.2) mg/dL Total Bilirubin (0.2-1.3) mg/dL AST (14-36) U/L ALT (6-35) U/L Alkaline Phosphatase (38-126) U/L C-Reactive Protein (<1.0) mg/dL Total Protein (6.3-8.2) g/dL Albumin (3.5-5.1) g/dL Procalcitonin ng/mL Urine Color (Yellow) Urine Appearance (Clear) Urine pH (5.0-9.0) Ur Specific [place] (1.001-1.035) Urine Protein (Negative) mg/dL Urine Glucose (UA) (Negative) mg/dL Urine Ketones (Negative) mg/dL Ur Blood (Man) (Negative) Urine Nitrate (Negative) Urine Bilirubin (Negative) Urine Urobilinogen (<2.0) mg/dL Add Ur Microanalysis Leukocyte Esterase Rfl (Negative) EL/UL Urine RBC (0-2) /hpf Urine WBC (0-3) /hpf Ur Squamous Epith Cells (Few) /hpf Urine Bacteria /hpf Urine Casts Hyaline Casts (None) /lpf Urine Yeast (Budding) (None) /hpf <Rina Fitch, [employer] - Last Filed: 10/05/24 04:30> Lab Results 10/04/24 10/04/24 10/05/24 Range/Units 20:59 23:09 00:11 WBC 16.3 H (4.5-10.0) K/mm3 RBC 3.69 L (4.2-5.4) M/mm3 Hgb 11.8 L (12.0-15.0) g/dL Hct 36.0 L (37.0-47.0) % MCV 97.6 (80-100) fl MCH 32.0 (26-34) pg MCHC 32.8 (32-36) g/dl RDW 15.4 H (11.5-14.5) % Plt Count 309 (150-375) k/mm3 MPV 8.7 (7.4-10.4) fl Immature Gran % (Auto) 1.1 H (0-0.5) % Neut % (Auto) 90.5 H (45.5-73.1) % Lymph % (Auto) 5.3 L (18.3-44.2) % [place] % (Auto) 2.9 (2.6-8.5) % Eos % (Auto) 0.1 (0-4.4) % Baso % (Auto) 0.1 L (0.2-1.2) % Lymph # (Auto) 0.87 L (0.9-3.2) K/mm3 [place] # (Auto) 0.5 (0.1-0.6) K/mm3 Eos # (Auto) 0.0 (0-0.3) K/mm3 Baso # (Auto) 0.0 (0.0-0.1) K/mm3 Abs Immat Gran (auto) 0.18 H (0.00-0.031) K/mm3 Absolute Neuts (auto) 14.7 H (1.3-6.7) K/mm3 Absolute Nucleated RBC 0.000 (0.0-0.012) K/mm3 Nucleated RBC % 0.0 (0.0-0.2) % PT 13.4 (11.1-14.7) Seconds INR 1.0 APTT < 20.0 L (22.3-36.8) Seconds Sodium 131 L (137-145) mmol/L Potassium 3.9 (3.4-5.0) mmol/L Chloride 97 L (98-107) mmol/L Carbon Dioxide 26 (22-30) mmol/L Anion Gap 8 (4-12) mmol/L BUN 19 H (7-17) mg/dL Creatinine 0.58 L (0.7-1.0) mg/dL Estim Creat Clear Calc 137 ml/min Estimated GFR > 60 (59 - ) Glucose 142 H (65-110) mg/dL Lactic Acid (0.7-2.0) mmol/L Calcium 8.9 (8.4-10.2) mg/dL Total Bilirubin 0.9 (0.2-1.3) mg/dL AST 26 (14-36) U/L ALT 20 (6-35) U/L Alkaline Phosphatase 58 (38-126) U/L C-Reactive Protein 6.7 H (<1.0) mg/dL Total Protein 7.0 (6.3-8.2) g/dL Albumin 3.9 (3.5-5.1) g/dL Procalcitonin 0.4 ng/mL Urine Color Dark yellow (Yellow) Urine Appearance Turbid H (Clear) Urine pH 5.5 (5.0-9.0) Ur Specific [place] 1.028 (1.001-1.035) Urine Protein 1+ H (Negative) mg/dL Urine Glucose (UA) Negative (Negative) mg/dL Urine Ketones Trace H (Negative) mg/dL Ur Blood (Man) 1+ H (Negative) Urine Nitrate Positive H (Negative) Urine Bilirubin 2+ H (Negative) Urine Urobilinogen 1.0 (<2.0) mg/dL Add Ur Microanalysis Reviewed Leukocyte Esterase Rfl 2+ H (Negative) EL/UL Urine RBC 51-100 H (0-2) /hpf Urine WBC 21-50 H (0-3) /hpf Ur Squamous Epith Cells Many H (Few) /hpf Urine Bacteria 4+ H /hpf Urine Casts 6-10 Hyaline Casts Present (None) /lpf Urine Yeast (Budding) Present H (None) /hpf 10/05/24 Range/Units 00:12 WBC (4.5-10.0) K/mm3 RBC (4.2-5.4) M/mm3 Hgb (12.0-15.0) g/dL Hct (37.0-47.0) % MCV (80-100) fl MCH (26-34) pg MCHC (32-36) g/dl RDW (11.5-14.5) % Plt Count (150-375) k/mm3 MPV (7.4-10.4) fl Immature Gran % (Auto) (0-0.5) % Neut % (Auto) (45.5-73.1) % Lymph % (Auto) (18.3-44.2) % [place] % (Auto) (2.6-8.5) % Eos % (Auto) (0-4.4) % Baso % (Auto) (0.2-1.2) % Lymph # (Auto) (0.9-3.2) K/mm3 [place] # (Auto) (0.1-0.6) K/mm3 Eos # (Auto) (0-0.3) K/mm3 Baso # (Auto) (0.0-0.1) K/mm3 Abs Immat Gran (auto) (0.00-0.031) K/mm3 Absolute Neuts (auto) (1.3-6.7) K/mm3 Absolute Nucleated RBC (0.0-0.012) K/mm3 Nucleated RBC % (0.0-0.2) % PT (11.1-14.7) Seconds INR APTT (22.3-36.8) Seconds Sodium (137-145) mmol/L Potassium (3.4-5.0) mmol/L Chloride (98-107) mmol/L Carbon Dioxide (22-30) mmol/L Anion Gap (4-12) mmol/L BUN (7-17) mg/dL Creatinine (0.7-1.0) mg/dL Estim Creat Clear Calc ml/min Estimated GFR (59 - ) Glucose (65-110) mg/dL Lactic Acid 1.8 (0.7-2.0) mmol/L Calcium (8.4-10.2) mg/dL Total Bilirubin (0.2-1.3) mg/dL AST (14-36) U/L ALT (6-35) U/L Alkaline Phosphatase (38-126) U/L C-Reactive Protein (<1.0) mg/dL Total Protein (6.3-8.2) g/dL Albumin (3.5-5.1) g/dL Procalcitonin ng/mL Urine Color (Yellow) Urine Appearance (Clear) Urine pH (5.0-9.0) Ur Specific [place] (1.001-1.035) Urine Protein (Negative) mg/dL Urine Glucose (UA) (Negative) mg/dL Urine Ketones (Negative) mg/dL Ur Blood (Man) (Negative) Urine Nitrate (Negative) Urine Bilirubin (Negative) Urine Urobilinogen (<2.0) mg/dL Add Ur Microanalysis Leukocyte Esterase Rfl (Negative) EL/UL Urine RBC (0-2) /hpf Urine WBC (0-3) /hpf Ur Squamous Epith Cells (Few) /hpf Urine Bacteria /hpf Urine Casts Hyaline Casts (None) /lpf Urine Yeast (Budding) (None) /hpf <Trever Choudhury MD - Last Filed: 10/05/24 06:32> Imaging Data Attestation: I personally reviewed and interpreted this imaging study as follows: < Trever Choudhury MD - Last Filed: 10/05/24 06:32> My impression: Impressions Femur X-Ray 10/04/24 20:20 IMPRESSION: No acute osseous abnormality of the right femur. Osteopenia around the right knee joint. Severe osteoarthritic changes of the right knee. Lower Extremity CT 10/05/24 05:41 IMPRESSION: Extensive subcutaneous soft tissue edema of the right lower extremity, especially about the knee, compatible with cellulitis. No abscess evident. No evidence for osteomyelitis. Probable postoperative scarring and distortion at the anterior aspect of the proximal right thigh. Correlate with surgical history and physical exam. Moderate degenerative change at the knee. <Trever Choudhury MD - Last Filed: 10/05/24 06:32> Discharge Plan Discharge Clinical Impression: Cellulitis, Right leg pain <Rina Fitch APRN - Last Filed: 10/05/24 04:30> Patient Disposition: Still a Patient <Rina Fitch APRN - Last Filed: 10/05/24 04:30> Condition: Stable <Rina Fitch APRN - Last Filed: 10/05/24 04:30> Patient Language: Somali <Rina Fitch APRN - Last Filed: 10/05/24 04:30> Prescriptions: No Action methotrexate sodium 2.5 mg tablet 2.5 mg PO DIRECTED cyclobenzaprine 10 mg tablet 10 mg DIRECTED PRN (Reason: Muscle Spasm) Rx Instructions: muscle spasms metformin 500 mg tablet 1,000 mg BID fluticasone propion-salmeterol 250-50 mcg/dose blister with device 1 inh INHALATION DIRECTED carvedilol 6.25 mg tablet 6.25 mg BID lisinopril 20 mg tablet 20 mg DAILY clopidogrel 75 mg tablet 75 mg PO DAILY simvastatin 20 mg tablet 20 mg DAILY buspirone 7.5 mg tablet 7.5 mg TID montelukast 10 mg tablet 10 mg DAILY aspirin 81 mg Tablet 81 mg PO DAILY albuterol sulfate 90 mcg/actuation HFA aerosol inhaler 90 mcg INHALATION DIRECTED pioglitazone 30 mg tablet 30 mg DAILY vitamin B complex [Super B Complex] Capsule 1 cap PO DAILY cephalexin 500 mg capsule 500 mg PO Q8H 10 Days Qty: 30 0RF hydrocodone-acetaminophen 5-325 mg tablet 1 tablet PO Q4H PRN (Reason: pain) Qty: 14 0RF <Rina Fitch APRN - Last Filed: 10/05/24 04:30> Follow-up/Referrals: Gonzáles,Apolinar Braswell MD [Primary Care Provider] - <Rina Fitch APRN - Last Filed: 10/05/24 04:30> Time of Disposition: 06:32 <Rina Fitch APRN - Last Filed: 10/05/24 04:30> 06:32 <Trever Choudhury MD - Last Filed: 10/05/24 06:32>
[2024-10-05] VITALS (20 sets, daily range): BP systolic 114–151; BP diastolic 55–66; PULSE 84–100; RESP 14–21; TEMP 36.2–36.9; O2SAT 94–100; BMI 68.7
[2024-10-05] MEDS: SODIUM CHLORIDE 0.9% IV 1,000 ML 999 ML IV CONT ×2 (00:16→04:07)
[2024-10-05] MEDS: ceFAZolin 1 GM/NS 50 ML 1 GM/50 ML BAG IVPB (00:16)
[2024-10-05] MEDS: MORPHINE SULFATE (*CRX) 4 MG/ML INJ IV PUSH ×2 (00:17→03:55)
[2024-10-05 00:27] LABS: Lactic Acid Reflex 1.8 mmol/L (0.7-2.0)
[2024-10-05 00:30] LABS: CRP 6.7 mg/dL (<1.0)
[2024-10-05 00:32] LABS: Prothrombin Time 13.4 Seconds (11.1-14.7)
[2024-10-05 00:38] LABS: Partial Thromboplastin Time < 20.0 Seconds (22.3-36.8)
[2024-10-05 03:51] LABS: Procalcitonin 0.4 ng/mL
[2024-10-05] MEDS: VANCOMYCIN 1,500 MG/NS 500 ML 1,500 MG/500 ML BAG 250 MG IVPB ×2 (04:55→18:11)
--- NOTE | 2024-10-05 08:05 | ADMGEN ---
This patient, Sanjay David, was admitted to 3 Med Surg Room 315-01. Patient/family oriented to hospital policies and general routines including ID bracelet, bed and alarms, visiting hours, pain management, procedures, bathroom and other care routines, personal items, smoking policy, room service/diet, and visiting hours. Information on how to activate the Rapid Response Team has been discussed. Patient/Family are encouraged to report perceived risks to care and to ask questions if they do not understand what they are told or what they should do.
[2024-10-05 11:48] LABS: Glucose Point of Care 127 mg/dl (65-105)
--- NOTE | 2024-10-05 12:42 | PM.IMHP ---
H&P: HPI History of Present Illness Date/Time: 10/05/24 12:42 Chief Complaint: Right leg resness Narrative: 58-year-old female past medical history of COPD, asthma, hypertension type 2 diabetes presented to the ER on account of right leg redness and pain. Otherwise denies any fever, no chest pain no diplopia no diarrhea dysuria no focal weakness. No prior episodes. ER evaluation notable for blood pressure 150/76. Labs WBC 16 3, blood sugar [address] lower extremities showed changes consistent cellulitis. She was antibiotics production. Review of Systems Review of Systems: All other systems reviewed and negative except as noted in the history above. REPLACED BY [facility] Past Medical History Medical History Tear of meniscus of right knee Intestinal fistula Diabetes CAD (coronary artery disease) COPD (chronic obstructive pulmonary disease) Surgical History Surgical History History of hysterectomy Family History Family History (Updated 10/05/24 @ 08:14 by Nina Steen RN) Mother Arthritis Asthma COPD (chronic obstructive pulmonary disease) Leukemia Father Family history of heart disease in male family member before age 55 Family history of diabetes mellitus in first degree relative Patient's father is Carcinoma of colon Sibling Family history of heart disease in male family member before age 55 Family history of diabetes mellitus in first degree relative Social History Social History Smoking packs per day: 1 Smoking cigarettes per day: 20.0 Years smoked: 40 Smoking pack-years: 40.00 Smoking status: Former smoker Tobacco type: cigarettes Alcohol intake: never Drinks per week: 0 Substance use: never Do You Feel Safe in your Home?: Yes Lack of Transportation: No Lack of Food: Never True Current Housing: I Have Housing Concerned About Future Housing: No Difficulty Paying Gas/Electric Bills: No Difficulty Paying for Meds: No Currently Unemployed: No Education: High School Diploma/GED Difficulty w/ Childcare or Family Care: No Spiritual care concerns: No Meds Home Medications and Allergies Home Medications ?Medication ?Instructions ?Recorded ?Confirmed ?Type albuterol sulfate 90 mcg/actuation 90 mcg inhalation DIRECTED 11/25/20 10/05/24 History aerosol inhaler aspirin 81 mg tablet 81 mg PO DAILY 11/25/20 10/05/24 History buspirone 7.5 mg tablet 7.5 mg PO TID 11/25/20 10/05/24 History carvedilol 6.25 mg tablet 6.25 mg PO BID 11/25/20 10/05/24 History clopidogrel 75 mg tablet 75 mg PO DAILY 11/25/20 10/05/24 History cyclobenzaprine 10 mg tablet 10 mg PO DIRECTED PRN Muscle 11/25/20 10/05/24 History Spasm fluticasone 250 mcg-salmeterol 50 1 inh inhalation DIRECTED 11/25/20 10/05/24 History mcg/dose blistr powdr for inhalation lisinopril 20 mg tablet 20 mg PO DAILY 11/25/20 10/05/24 History metformin 500 mg tablet 1,000 mg PO BID 11/25/20 10/05/24 History montelukast 10 mg tablet 10 mg PO DAILY 11/25/20 10/05/24 History pioglitazone 30 mg tablet 30 mg PO DAILY 11/25/20 10/05/24 History simvastatin 20 mg tablet 20 mg PO HS 11/25/20 10/05/24 History vitamin B complex 1 cap PO DAILY 11/25/20 10/05/24 History methotrexate sodium 2.5 mg tablet 2.5 mg PO DIRECTED 06/17/22 10/05/24 History melatonin 12 mg disintegrating 12 mg PO HS PRN sleep 10/05/24 10/05/24 History tablet tramadol 50 mg tablet 50 mg PO Q12H 10/05/24 10/05/24 History Allergies Allergy/AdvReac Type Severity Reaction Status Date / Time No Known Allergies Allergy Verified 10/05/24 08:18 Vital Signs Vital Signs - 24 hr 10/04/24 17:26 10/04/24 23:10 10/04/24 23:11 Temperature 98.3 F Pulse Rate 101 H 92 90 Respiratory Rate 16 23 H 19 Blood Pressure 118/49 L 139/62 Pulse Oximetry 100 100 100 Oxygen Delivery Room Air 10/04/24 23:24 10/04/24 23:25 10/05/24 00:19 Temperature Pulse Rate 88 85 88 Respiratory Rate 18 16 15 Blood Pressure 139/62 144/65 H Pulse Oximetry 97 100 Oxygen Delivery 10/05/24 01:38 10/05/24 01:45 10/05/24 02:02 Temperature Pulse Rate 96 98 Respiratory Rate 19 18 Blood Pressure 130/55 L 138/62 Pulse Oximetry 100 99 98 Oxygen Delivery 10/05/24 03:02 10/05/24 04:45 10/05/24 05:08 Temperature Pulse Rate 90 87 Respiratory Rate 19 14 18 Blood Pressure 114/61 Pulse Oximetry 99 94 98 Oxygen Delivery 10/05/24 05:38 10/05/24 06:12 10/05/24 07:00 Temperature Pulse Rate 92 100 94 Respiratory Rate 21 H 20 16 Blood Pressure 151/66 H Pulse Oximetry 95 94 96 Oxygen Delivery 10/05/24 08:00 Temperature Pulse Rate Respiratory Rate Blood Pressure Pulse Oximetry Oxygen Delivery Room Air Exam Narrative: General: alert and comfortable Eyes: EOMI, PERRLA ENNT External ears normal, Neck is supple, no masses, Respiratory systems: Clear to auscultation Cardiovascular S1, S2, normal rhythm, no murmur, rub, or gallop; no thrill or palpable murmurs on palpation. Gastrointestinal: soft, non-tender, and non-distended abdomen with no masses; BS present Skin: no rash, lesions, ulcerations, subcutaneous nodules or induration Musculoskeletal: Right lower extremities erythema, tenderness Neurologic: Alert and oriented x3, non focal Mental Status Exam: normal affect H&P: Results Labs Labs: Short CBC 10/04/24 Range/Units 20:59 WBC 16.3 H (4.5-10.0) K/mm3 Hgb 11.8 L (12.0-15.0) g/dL Hct 36.0 L (37.0-47.0) % Plt Count 309 (150-375) k/mm3 BMP 10/04/24 20:59 Sodium 131 L Potassium 3.9 Chloride 97 L Carbon Dioxide 26 BUN 19 H Creatinine 0.58 L Glucose 142 H Calcium 8.9 Liver Function 10/04/24 Range/Units 20:59 Total Bilirubin 0.9 (0.2-1.3) mg/dL AST 26 (14-36) U/L ALT 20 (6-35) U/L Alkaline Phosphatase 58 (38-126) U/L Albumin 3.9 (3.5-5.1) g/dL Urine 05/27/25 Range/Units 23:09 Urine Color Dark yellow (Yellow) Urine Appearance Turbid H (Clear) Urine pH 5.5 (5.0-9.0) Ur Specific [place] 1.028 (1.001-1.035) Urine Protein 1+ H (Negative) mg/dL Urine Glucose (UA) Negative (Negative) mg/dL Assessment and Plan Assessment and plan (1) Cellulitis: Code(s): L03.90 - Cellulitis, unspecified Status: Acute Plan Right lower extremities cellulitis Blood culture CT RLE reviewed Continue Vancomycin DM2 SSI with accucheks HTN BP 151/66 Continue COreg, Lisinopril COPD Duoneb PRN CAD Contineu aspirin, Plavix, Coreg and Statin DVT prophylaxis subQ Lovenox Full code Surrogate decision maker is Paul David Hospitalist MIPS Advance Care Plan I have confirmed that the patient's Advanced Care Plan is present, code status is documented, or surrogate decision maker is listed in patient medical record.: Yes Medication Reconciliation I have utilized all available resources to obtain, update and review the patients current medications (includes all prescriptions, OTC, herbals, cannabis, and nutritional supplements).: Yes
[2024-10-05] MEDS: HYDROcodone/acetaminophen (*CRX) 5-325 MG TABLET 1 TAB PO ×2 (13:13→18:15)
[2024-10-05] MEDS: CYCLOBENZAPRINE HCL 10 MG TABLET PO (13:13)
[2024-10-05] MEDS: busPIRone HCL 2.5 MG TABLET 7.5 MG PO ×2 (13:14→18:11)
[2024-10-05] MEDS: IPRATROPIUM 0.5 MG/ALBUTEROL SULFATE 2.5 MG AMPUL.NEB 3 ML INHALATION ×2 (14:32→20:05)
[2024-10-05 16:31] LABS: Glucose Point of Care 137 mg/dl (65-105)
[2024-10-05] MEDS: carvediloL 6.25 MG TABLET PO (18:11)
[2024-10-05] MEDS: FLUTICASONE/SALMETEROL 115-21 MCG INHALER 1 PUFF 2 PUFF INHALATION (20:22)
[2024-10-05 21:04] LABS: Glucose Point of Care 169 mg/dl (65-105)
[2024-10-06] VITALS (12 sets, daily range): BP systolic 110–141; BP diastolic 46–65; PULSE 61–98; RESP 15–24; TEMP 36–36.6; O2SAT 93–98
[2024-10-06 07:42] LABS: Glucose Point of Care 120 mg/dl (65-105)
[2024-10-06 07:58] LABS: Basophils Percent Auto 0.4 % (0.2-1.2); Eosinophils Absolute Auto 0.1 K/mm3 (0-0.3); Eosinophils Percent Auto 1.7 % (0-4.4); Hematocrit 33.2 % (37.0-47.0); Hemoglobin 10.6 g/dL (12.0-15.0); Immature Granulocyte Absolute 0.03 K/mm3 (0.00-0.031); Immature Granulocyte Percent A 0.4 % (0-0.5); Lymphocytes Percent Auto 15.2 % (18.3-44.2); Mean Corpuscular HGB Conc 31.9 g/dl (32-36); Mean Corpuscular Hemoglobin 31.8 pg (26-34); Mean Corpuscular Volume 99.7 fl (80-100); Monocytes Absolute Auto 0.6 K/mm3 (0.1-0.6); Monocytes Percent Auto 8.5 % (2.6-8.5); Neutrophils Absolute Auto 5.4 K/mm3 (1.3-6.7); Neutrophils Percent Auto 73.8 % (45.5-73.1); Platelet Count Result 296 k/mm3 (150-375); Red Blood Count 3.33 M/mm3 (4.2-5.4); Red Cell Distribution Width 15.5 % (11.5-14.5); White Blood Count 7.3 K/mm3 (4.5-10.0)
[2024-10-06 08:11] LABS: Alanine Aminotransferase 20 U/L (6-35); Albumin Level 3.5 g/dL (3.5-5.1); Alkaline Phosphatase 64 U/L (38-126); Anion Gap 8 mmol/L (4-12); Aspartate Amino Transferase 25 U/L (14-36); Bilirubin,Total 0.6 mg/dL (0.2-1.3); Blood Urea Nitrogen 8 mg/dL (7-17); Calcium 8.8 mg/dL (8.4-10.2); Carbon Dioxide 26 mmol/L (22-30); Chloride 103 mmol/L (98-107); Estimated CRCL calculation 151 ml/min; Estimated Glomerular Filt Rate > 60; Glucose 127 mg/dL (65-110); Magnesium 1.6 mg/dL (1.6-2.3); Potassium 3.5 mmol/L (3.4-5.0); Sodium 137 mmol/L (137-145)
[2024-10-06] MEDS: carvediloL 6.25 MG TABLET PO ×2 (08:48→18:15)
[2024-10-06] MEDS: busPIRone HCL 2.5 MG TABLET 7.5 MG PO ×3 (08:48→18:15)
[2024-10-06] MEDS: CLOPIDOGREL BISULFATE 75 MG TABLET PO (08:48)
[2024-10-06] MEDS: ASPIRIN 81 MG CHEWABLE TABLET PO (08:48)
[2024-10-06] MEDS: MONTELUKAST SODIUM 10 MG TABLET PO (08:48)
[2024-10-06] MEDS: PIOGLITAZONE HCL 30 MG TABLET PO (08:48)
[2024-10-06] MEDS: lisinopriL 20 MG TABLET PO (08:48)
[2024-10-06] MEDS: VANCOMYCIN 1,500 MG/NS 500 ML 1,500 MG/500 ML BAG 250 MG IVPB (08:49)
[2024-10-06] MEDS: HYDROcodone/acetaminophen (*CRX) 5-325 MG TABLET 1 TAB PO (08:51)
[2024-10-06] MEDS: ENOXAPARIN 40 MG/0.4 ML SYRINGE SUB-Q (08:51)
[2024-10-06] MEDS: IPRATROPIUM 0.5 MG/ALBUTEROL SULFATE 2.5 MG AMPUL.NEB 3 ML INHALATION ×3 (09:12→20:53)
[2024-10-06] MEDS: FLUTICASONE/SALMETEROL 115-21 MCG INHALER 1 PUFF 2 PUFF INHALATION ×2 (09:12→20:54)
[2024-10-06] MEDS: DOXYCYCLINE HYCLATE 100 MG TABLET PO ×2 (11:25→21:50)
[2024-10-06 11:40] LABS: Glucose Point of Care 164 mg/dl (65-105)
[2024-10-06 16:26] LABS: Glucose Point of Care 181 mg/dl (65-105)
--- NOTE | 2024-10-06 17:28 | P.PNIM_ITS ---
Progress Note: A&P Assessment and Plan (1) Cellulitis: Code(s): L03.90 - Cellulitis, unspecified Status: Acute Plan Right lower extremities cellulitis Blood culture CT RLE reviewed S/p Vancomycin, now on Doxycycline, if patient continues to improve we will continue DOxy and discharge tomorrow DM2 SSI with accucheks HTN, improving BP 141/65 Continue Coreg, Lisinopril Started on HCTZ and monitor COPD Duoneb PRN CAD Contineu aspirin, Plavix, Coreg and Statin DVT prophylaxis subQ Lovenox Full code Subjective Date/time seen: 10/06/24 17:28 Interval history: Comfortable at bedside Review of Systems Review of Systems: All other systems reviewed and negative except as noted in the history above. Exam Narrative: General: alert and comfortable Eyes: EOMI, PERRLA ENNT External ears normal, Neck is supple, no masses, Respiratory systems: Clear to auscultation Cardiovascular S1, S2, normal rhythm, no murmur, rub, or gallop; no thrill or palpable murmurs on palpation. Gastrointestinal: soft, non-tender, and non-distended abdomen with no masses; BS present Skin: no rash, lesions, ulcerations, subcutaneous nodules or induration Musculoskeletal: Right lower extremities erythema, tenderness Neurologic: Alert and oriented x3, non focal Mental Status Exam: normal affect Objective Data Vital Signs Vital Signs: Vital Signs - 24 hr 10/05/24 18:11 10/05/24 20:00 10/05/24 20:08 Temperature Pulse Rate 90 87 95 Respiratory Rate 20 18 Blood Pressure Pulse Oximetry 100 Oxygen Delivery Room Air Fraction of Inspired Oxygen 10/05/24 20:10 10/05/24 20:25 10/05/24 21:40 Temperature 97.2 F L Pulse Rate 95 94 87 Respiratory Rate 18 18 20 Blood Pressure 130/60 Pulse Oximetry 97 100 Oxygen Delivery Room Air Fraction of Inspired Oxygen 21 10/06/24 06:00 10/06/24 08:00 10/06/24 08:48 Temperature 97.4 F L Pulse Rate 98 98 Respiratory Rate 20 Blood Pressure 118/56 L Pulse Oximetry 96 Oxygen Delivery Room Air Fraction of Inspired Oxygen 10/06/24 09:14 10/06/24 09:14 10/06/24 13:59 Temperature 96.8 F L Pulse Rate 91 79 Respiratory Rate 18 22 H Blood Pressure 141/65 H Pulse Oximetry 98 95 Oxygen Delivery Room Air Fraction of Inspired Oxygen 10/06/24 15:01 10/06/24 15:11 Temperature Pulse Rate 92 97 Respiratory Rate 20 20 Blood Pressure Pulse Oximetry Oxygen Delivery Fraction of Inspired Oxygen Intake/Output Intake/Output: Intake & Output 10/03/24 10/04/24 10/05/24 10/06/24 23:59 23:59 23:59 23:59 Intake Total 3530 850 Balance 3530 850 Meds/Results Medications: Active Medications Generic Name Dose Route Start Last Admin Trade Name Freq PRN Reason Stop Dose Admin Acetaminophen 650 mg 10/05/24 06:06 Acetaminophen 325 Mg Tablet PO Q4H PRN Mild Pain (1-3) or Fever Hydrocodone Bitart/Acetaminophen 1 tab 10/05/24 12:36 10/06/24 08:51 Hydrocodone/Acetaminophen (*Crx) 5-325 Mg Tablet PO 1 tab Q4H PRN Administration Pain Rated 4-6 Albuterol/Ipratropium 3 ml 10/05/24 14:00 10/06/24 14:59 Ipratropium 0.5 Mg/Albuterol Sulfate 2.5 Mg Ampul.Neb 3 Ml INHALATION 3 ml Q6HRT LINDA Administration Aspirin 81 mg 10/06/24 08:00 10/06/24 08:48 Aspirin 81 Mg Chewable Tablet PO 81 mg DAILY@0800 LINDA Administration Buspirone HCl 7.5 mg 10/05/24 13:00 10/06/24 13:04 Buspirone Hcl 2.5 Mg Tablet PO 7.5 mg TID LINDA Administration Carvedilol 6.25 mg 10/05/24 17:00 10/06/24 08:48 Carvedilol 6.25 Mg Tablet PO 6.25 mg BID LINDA Administration Clopidogrel Bisulfate 75 mg 10/06/24 09:00 10/06/24 08:48 Clopidogrel Bisulfate 75 Mg Tablet PO 75 mg DAILY LINDA Administration Cyclobenzaprine HCl 10 mg 10/05/24 12:40 10/05/24 13:13 Cyclobenzaprine Hcl 10 Mg Tablet PO 10 mg Q8H PRN Administration Muscle Spasm Dextrose 12.5 gm 10/05/24 12:42 Dextrose 50% 25 Gm/50 Ml Syringe IV PUSH PRN PRN Hypoglycemia Protocol Doxycycline Hyclate 100 mg 10/06/24 10:30 10/06/24 11:25 Doxycycline Hyclate 100 Mg Tablet PO 100 mg Q12HR LINDA Administration Enoxaparin Sodium 40 mg 10/06/24 09:00 10/06/24 08:51 Enoxaparin 40 Mg/0.4 Ml Syringe SUB-Q 40 mg DAILY LINDA Administration Glucagon 1 mg 10/05/24 12:42 Glucagon For Inj 1 Mg Vial IM PRN PRN Hypoglycemia Protocol Glucose 15 gm 10/05/24 12:42 Glucose Oral Gel 15 Gm Of Glucse In 37.5 Gm Tube PO PRN PRN Hypoglycemia Protocol Dextrose 1,000 mls @ 100 mls/hr 10/05/24 12:42 Dextrose 5% 1,000 Ml IVPB PRN PRN Hypoglycemia Protocol Insulin Aspart 2 - 5 units 10/05/24 17:00 10/06/24 11:32 Insulin Aspart (*Bkc) 100 Units/Ml SUB-Q Not Given [facility] Protocol Lisinopril 20 mg 10/06/24 09:00 10/06/24 08:48 Lisinopril 20 Mg Tablet PO 20 mg DAILY LINDA Administration Montelukast Sodium 10 mg 10/06/24 09:00 10/06/24 08:48 Montelukast Sodium 10 Mg Tablet PO 10 mg DAILY LINDA Administration Ondansetron HCl 4 mg 10/05/24 06:06 Ondansetron Inj 4 Mg/2 Ml Vial IV PUSH Q4H PRN Nausea Pioglitazone HCl 30 mg 10/06/24 09:00 10/06/24 08:48 Pioglitazone Hcl 30 Mg Tablet PO 30 mg DAILY LINDA Administration Fluticasone/Salmeterol 2 puff 10/05/24 20:00 10/06/24 09:12 Fluticasone/Salmeterol 115-21 Mcg Inhaler 1 Puff INHALATION 2 puff Q12HRT LINDA Administration Radiology Results: ITS Impressions Femur X-Ray 10/04/24 20:20 IMPRESSION: No acute osseous abnormality of the right femur. Osteopenia around the right knee joint. Severe osteoarthritic changes of the right knee. Lower Extremity CT 10/05/24 05:41 IMPRESSION: Extensive subcutaneous soft tissue edema of the right lower extremity, especially about the knee, compatible with cellulitis. No abscess evident. No evidence for osteomyelitis. Probable postoperative scarring and distortion at the anterior aspect of the proximal right thigh. Correlate with surgical history and physical exam. Moderate degenerative change at the knee. Labs Labs: Laboratory Results - last 24 hr 10/05/24 10/06/24 10/06/24 20:40 07:23 07:33 WBC 7.3 RBC 3.33 L Hgb 10.6 L Hct 33.2 L MCV 99.7 MCH 31.8 MCHC 31.9 L RDW 15.5 H Plt Count 296 MPV 9.0 Immature Gran % (Auto) 0.4 Neut % (Auto) 73.8 H Lymph % (Auto) 15.2 L [place] % (Auto) 8.5 Eos % (Auto) 1.7 Baso % (Auto) 0.4 Lymph # (Auto) 1.10 [place] # (Auto) 0.6 Eos # (Auto) 0.1 Baso # (Auto) 0.0 Abs Immat Gran (auto) 0.03 Absolute Neuts (auto) 5.4 Absolute Nucleated RBC 0.000 Nucleated RBC % 0.0 Sodium 137 Potassium 3.5 Chloride 103 Carbon Dioxide 26 Anion Gap 8 BUN 8 D Creatinine 0.52 L Estim Creat Clear Calc 151 Estimated GFR > 60 Glucose 127 H POC Capillary Glucose 169 H 120 H Calcium 8.8 Magnesium 1.6 Total Bilirubin 0.6 AST 25 ALT 20 Alkaline Phosphatase 64 Total Protein 7.0 Albumin 3.5 10/06/24 10/06/24 11:32 16:20 WBC RBC Hgb Hct MCV MCH MCHC RDW Plt Count MPV Immature Gran % (Auto) Neut % (Auto) Lymph % (Auto) [place] % (Auto) Eos % (Auto) Baso % (Auto) Lymph # (Auto) [place] # (Auto) Eos # (Auto) Baso # (Auto) Abs Immat Gran (auto) Absolute Neuts (auto) Absolute Nucleated RBC Nucleated RBC % Sodium Potassium Chloride Carbon Dioxide Anion Gap BUN Creatinine Estim Creat Clear Calc Estimated GFR Glucose POC Capillary Glucose 164 H 181 H Calcium Magnesium Total Bilirubin AST ALT Alkaline Phosphatase Total Protein Albumin
[2024-10-06] MEDS: hydroCHLOROthiazide 12.5 MG CAPSULE PO (18:15)
[2024-10-06 20:10] LABS: Glucose Point of Care 153 mg/dl (65-105)
[2024-10-07 06:00] VITALS: BP 119/59; PULSE 87; RESP 16; TEMP 36.4; O2SAT 97
[2024-10-07 06:19] LABS: Basophils Percent Auto 0.6 % (0.2-1.2); Eosinophils Absolute Auto 0.2 K/mm3 (0-0.3); Eosinophils Percent Auto 3.1 % (0-4.4); Hematocrit 32.5 % (37.0-47.0); Hemoglobin 10.1 g/dL (12.0-15.0); Immature Granulocyte Absolute 0.01 K/mm3 (0.00-0.031); Immature Granulocyte Percent A 0.2 % (0-0.5); Lymphocytes Absolute Auto 1.05 K/mm3 (0.9-3.2); Lymphocytes Percent Auto 21.4 % (18.3-44.2); Mean Corpuscular HGB Conc 31.1 g/dl (32-36); Mean Corpuscular Hemoglobin 31.2 pg (26-34); Mean Corpuscular Volume 100.3 fl (80-100); Mean Platelet Volume 8.6 fl (7.4-10.4); Monocytes Absolute Auto 0.6 K/mm3 (0.1-0.6); Neutrophils Absolute Auto 3.1 K/mm3 (1.3-6.7); Neutrophils Percent Auto 62.7 % (45.5-73.1); Platelet Count Result 256 k/mm3 (150-375); Red Blood Count 3.24 M/mm3 (4.2-5.4); Red Cell Distribution Width 15.4 % (11.5-14.5); White Blood Count 4.9 K/mm3 (4.5-10.0)
[2024-10-07 06:27] LABS: Alanine Aminotransferase 22 U/L (6-35); Albumin Level 3.3 g/dL (3.5-5.1); Alkaline Phosphatase 59 U/L (38-126); Anion Gap 8 mmol/L (4-12); Aspartate Amino Transferase 27 U/L (14-36); Bilirubin,Total 0.4 mg/dL (0.2-1.3); Blood Urea Nitrogen 8 mg/dL (7-17); Calcium 8.8 mg/dL (8.4-10.2); Carbon Dioxide 27 mmol/L (22-30); Chloride 103 mmol/L (98-107); Estimated CRCL calculation 157 ml/min; Estimated Glomerular Filt Rate > 60; Glucose 131 mg/dL (65-110); Magnesium 1.6 mg/dL (1.6-2.3); Potassium 3.4 mmol/L (3.4-5.0); Sodium 138 mmol/L (137-145)
[2024-10-07 07:44] VITALS: PULSE 82; RESP 18; O2SAT 99
[2024-10-07] MEDS: IPRATROPIUM 0.5 MG/ALBUTEROL SULFATE 2.5 MG AMPUL.NEB 3 ML INHALATION (07:44)
[2024-10-07] MEDS: FLUTICASONE/SALMETEROL 115-21 MCG INHALER 1 PUFF 2 PUFF INHALATION (07:44)
[2024-10-07 07:52] VITALS: PULSE 80; RESP 18
[2024-10-07 08:11] LABS: Glucose Point of Care 127 mg/dl (65-105)
[2024-10-07] MEDS: PIOGLITAZONE HCL 30 MG TABLET PO (10:37)
[2024-10-07 10:38] VITALS: PULSE 80
[2024-10-07] MEDS: carvediloL 6.25 MG TABLET PO (10:38)
[2024-10-07] MEDS: busPIRone HCL 2.5 MG TABLET 7.5 MG PO (10:38)
[2024-10-07] MEDS: ASPIRIN 81 MG CHEWABLE TABLET PO (10:38)
[2024-10-07] MEDS: ENOXAPARIN 40 MG/0.4 ML SYRINGE SUB-Q (10:39)
[2024-10-07] MEDS: MONTELUKAST SODIUM 10 MG TABLET PO (10:39)
[2024-10-07] MEDS: CLOPIDOGREL BISULFATE 75 MG TABLET PO (10:39)
[2024-10-07] MEDS: DOXYCYCLINE HYCLATE 100 MG TABLET PO (10:39)
[2024-10-07] MEDS: lisinopriL 20 MG TABLET PO (10:39)
[2024-10-07] MEDS: hydroCHLOROthiazide 12.5 MG CAPSULE PO (10:39)
--- NOTE | 2024-10-07 11:26 | P.DS_ITS ---
DS: Admitting Diagnosis Discharge Date 10/07/2024 Admitting Diagnosis Right leg redness DS: Discharge Diagnosis Discharge Diagnosis (1) Right leg pain: Code(s): M79.604 - Pain in right leg Status: Acute DS: Summary Hospital Course Hospital Course: 58-year-old female past medical history of COPD, asthma, hypertension type 2 diabetes presented to the ER on account of right leg redness and pain. Otherwise denies any fever, no chest pain no diplopia no diarrhea dysuria no focal weakness. No prior episodes. ER evaluation notable for blood pressure 150/76. Labs WBC 16 3, blood sugar [address] lower extremities showed changes consistent cellulitis. Patient was amanged initially with Vanc, Symptoms markedly improved and leukoctosis resolved, she was switched to Doxycycline yesterday and symptoms continued to improved, thus she was discharged today on PO doxycyclien to complete 14 days of therapy. ALso blood pressure was elevated thus HCTZ was added to her regimen and blood pressure improved. Patient discharged on 12.5mg HCTZ daily to her regimen. F/u with PCP in 3-5 days Time Spent with Patient Time attestation: Total time spent providing and/or coordinating discharge services: DS: Data Data Completed and Pending Labs on day of discharge: Labs from last 24 hours 10/07/24 10/07/24 10/06/24 07:56 06:06 19:54 WBC 4.9 RBC 3.24 L Hgb 10.1 L Hct 32.5 L MCV 100.3 H MCH 31.2 MCHC 31.1 L RDW 15.4 H Plt Count 256 MPV 8.6 Immature Gran % (Auto) 0.2 Neut % (Auto) 62.7 Lymph % (Auto) 21.4 [place] % (Auto) 12.0 H Eos % (Auto) 3.1 Baso % (Auto) 0.6 Lymph # (Auto) 1.05 [place] # (Auto) 0.6 Eos # (Auto) 0.2 Baso # (Auto) 0.0 Abs Immat Gran (auto) 0.01 Absolute Neuts (auto) 3.1 Absolute Nucleated RBC 0.000 Nucleated RBC % 0.0 Sodium 138 Potassium 3.4 Chloride 103 Carbon Dioxide 27 Anion Gap 8 BUN 8 Creatinine 0.50 L Estim Creat Clear Calc 157 Estimated GFR > 60 Glucose 131 H POC Capillary Glucose 127 H 153 H Calcium 8.8 Magnesium 1.6 Total Bilirubin 0.4 AST 27 ALT 22 Alkaline Phosphatase 59 Total Protein 6.0 L Albumin 3.3 L 10/06/24 10/06/24 16:20 11:32 WBC RBC Hgb Hct MCV MCH MCHC RDW Plt Count MPV Immature Gran % (Auto) Neut % (Auto) Lymph % (Auto) [place] % (Auto) Eos % (Auto) Baso % (Auto) Lymph # (Auto) [place] # (Auto) Eos # (Auto) Baso # (Auto) Abs Immat Gran (auto) Absolute Neuts (auto) Absolute Nucleated RBC Nucleated RBC % Sodium Potassium Chloride Carbon Dioxide Anion Gap BUN Creatinine Estim Creat Clear Calc Estimated GFR Glucose POC Capillary Glucose 181 H 164 H Calcium Magnesium Total Bilirubin AST ALT Alkaline Phosphatase Total Protein Albumin Preliminary micro results at discharge 10/05/24 00:18 Blood Culture - Preliminary Blood 10/05/24 00:18 Blood Culture - Preliminary Blood Discharge Plan Discharge Attending physician on discharge: Richard Cochran Discharging Clinician: Richard Cochran Anticipated Discharge Date/Time: 10/07/24 11:21 Patient Disposition: Home Activity: as tolerated Diet: as tolerated Patient Instructions: Antibiotic Form Patient Language: Estonian Stand Alone Forms: General Discharge Information Follow-up/Referrals: Nivia,Apolinar Braswell MD [Primary Care Provider] - (F/u with PCP in 3-5 days) Discharge Medications: New hydrocodone-acetaminophen 5-325 mg Tablet 1 tablet PO Q4H PRN (Reason: Pain Rated 4-6) 5 Days Qty: 6 0RF doxycycline hyclate 100 mg Tablet 100 mg PO Q12HR 13 Days Qty: 26 0RF hydrochlorothiazide 12.5 mg Capsule 12.5 mg PO QAM 30 Days Qty: 30 1RF Continued methotrexate sodium 2.5 mg tablet 2.5 mg PO DIRECTED Patient Comments: on thursday cyclobenzaprine 10 mg tablet 10 mg PO DIRECTED PRN (Reason: Muscle Spasm) Rx Instructions: muscle spasms metformin 500 mg tablet 1,000 mg PO BID fluticasone propion-salmeterol 250-50 mcg/dose blister with device 1 inh INHALATION DIRECTED carvedilol 6.25 mg tablet 6.25 mg PO BID lisinopril 20 mg tablet 20 mg PO DAILY clopidogrel 75 mg tablet 75 mg PO DAILY simvastatin 20 mg tablet 20 mg PO HS buspirone 7.5 mg tablet 7.5 mg PO TID montelukast 10 mg tablet 10 mg PO DAILY aspirin 81 mg Tablet 81 mg PO DAILY albuterol sulfate 90 mcg/actuation HFA aerosol inhaler 90 mcg INHALATION DIRECTED pioglitazone 30 mg tablet 30 mg PO DAILY vitamin B complex [Super B Complex] Capsule 1 cap PO DAILY tramadol 50 mg tablet 50 mg PO Q12H melatonin 12 mg tablet,disintegrating 12 mg PO HS PRN (Reason: sleep) Date of admission: 10/05/24 06:06 Primary Care Provider: Nivia,Apolinar Braswell Admitting Provider: Nina Washington Attending physician on admission: Nina Washington Condition: Stable
== END 2024-10-07 13:20 | disposition home or self-care (01) ==
LOC: ANHED 10-05 06:32 → ANH3MEDSUR 10-06 13:49
PROVIDERS: Student in an Organized Health Care Education/Training Program; Admitting Provider Internal Medicine; Emergency Provider Registered Nurse; PCP Family Medicine; Visit Provider Internal Medicine
DX: L03.115 Cellulitis of right lower limb (principal); M79.604 Pain in right leg; E11.9 Type 2 diabetes mellitus without complications; I10 Essential (primary) hypertension; J44.9 Chronic obstructive pulmonary disease, unspecified; I25.10 Atherosclerotic heart disease of native coronary artery without angina pectoris; Z79.02 Long term (current) use of antithrombotics/antiplatelets; Z79.51 Long term (current) use of inhaled steroids; Z79.82 Long term (current) use of aspirin; Z79.899 Other long term (current) drug therapy; Z87.891 Personal history of nicotine dependence
CPT/HCPCS: 36415; 73552; 73701; 80053; 81001; 82948; 83605; 83735; 84145; 85025; 85610; 85730; 86140; 87040; 93005; 94640; 96361; 96365; 96372; 96375; 96376; 99285; A9270; G0378; J0690; J1650; J2270; J3370; J7030; Q9967